=== PATIENT | female | born 1960 | race Caucasian/White ===

== ENCOUNTER 2016-10-07 18:41 | Inpatient (IN) | payer OTHER ==
[2016-10-07] MEDS ORDERED: SODIUM CHLORIDE 0.9% 1,000 ML IV ONE ×2 (20:20→20:40)
[2016-10-07] MEDS ORDERED: IV VANCOMYCIN PER PHARMACY 1 EACH MISC MISCELLANE PRN (20:27)
[2016-10-07] MEDS ORDERED: VANCOMYCIN 1,500 MG in SODIUM CHLORIDE 0.9% 250 ML IVPB STA (20:29)
[2016-10-07] MEDS ORDERED: HYDROmorphone 1 MG/ML 1 ML SYRINGE IVP STA (20:35)
--- NOTE | 2016-10-07 20:38 | ED ---
Skin/Abscess/FB HPI - General Chief complaint: Skin/Abscess/Foreign Body Stated complaint: leg infection Time Seen by Provider: 10/07/16 20:20 Source: patient, RN notes reviewed Mode of arrival: ambulatory Limitations: no limitations - History of Present Illness Initial comments: Patient is a 56-year-old female with a chief complaint of a laceration causing an infection over her right lower leg. She has a history of psoriasis and states that she stretched it becomes extremely itchy. She states that she may have scratched it in her sleep and then caught superficial infection. He states that she's had an increased fever, chills, diarrhea and rigors for one day. Patient reports that she saw her primary care provider and was told to come the emergency department. She states that the redness started this morning and is now radiating up her leg, behind her knee and her upper thigh. She states that she has never had a severe skin infection such as this and denies any history of MRSA. She reports that she's had a fever 103 prior to arriving to the emergency department. Patient denies any significant comorbidities. She denies any history of blood clots. She states that one week ago she did have some upper right leg pain when she was concerned was possible clot. Patient reports that she tested negative for the flu at the primary care office earlier today. - Related Data Home Medications Medication Instructions Recorded Confirmed Aspirin EC [Ecotrin Low Dose] 81 mg PO DAILY 10/07/16 10/07/16 Cholecalciferol [Vitamin D3] 1,000 unit PO DAILY 10/07/16 10/07/16 Cyanocobalamin (Vitamin B-12) 1,000 mcg PO HS 10/07/16 10/07/16 [Vitamin B-12] Horse [place] 1 tab PO DAILY 10/07/16 10/07/16 [place]-3 Fatty Acids/Fish Oil [Fish 1 cap PO DAILY 10/07/16 10/07/16 Oil 1,000 mg Softgel] [place] Oil 1 tab PO HS 10/07/16 10/07/16 Allergies Allergy/AdvReac Type Severity Reaction Status Date / Time Sulfa (Sulfonamide Allergy Rash/Hives Verified 10/07/16 20:43 Antibiotics) Review of Systems ROS Statement: Those systems with pertinent positive or pertinent negative responses have been documented in the HPI. ROS Other: All systems not noted in ROS Statement are negative. Past Medical History Additional Past Medical History / Comment(s): varicose veins History of Any Multi-Drug Resistant Organisms: None Reported Past Surgical History: Tonsillectomy Additional Past Surgical History / Comment(s): ovarian cyst and breast cyst removed Past Psychological History: No Psychological Hx Reported Smoking Status: Never smoker Past Alcohol Use History: None Reported Past Drug Use History: None Reported General Exam - General Exam Comments Initial Comments: Pleasant 56-year-old female. Patient does appear to be in somewhat discomfort. Limitations: no limitations General appearance: alert, in no apparent distress Head exam: Present: atraumatic, normocephalic, normal inspection Eye exam: Present: normal appearance, PERRL, EOMI. Absent: scleral icterus, conjunctival injection, periorbital swelling ENT exam: Present: normal exam, mucous membranes moist Neck exam: Present: normal inspection. Absent: tenderness, meningismus, lymphadenopathy Respiratory exam: Present: normal lung sounds bilaterally. Absent: respiratory distress, wheezes, rales, rhonchi, stridor Cardiovascular Exam: Present: regular rate, normal rhythm, normal heart sounds. Absent: systolic murmur, diastolic murmur, rubs, gallop, clicks GI/Abdominal exam: Present: soft, normal bowel sounds. Absent: distended, tenderness, guarding, rebound, rigid Extremities exam: Present: normal inspection, full ROM, normal capillary refill. Absent: tenderness, pedal edema, joint swelling, calf tenderness Right Hip exam: Present: normal inspection, full ROM Upper Leg exam: Present: normal inspection, full ROM, erythema (Patient has area of erythema over the upper medial thigh.) Knee exam: Present: normal inspection, full ROM, swelling (Area of erythema the lateral posterior knee.) Lower Leg exam: Present: full ROM, tenderness, swelling, erythema (Patient has significant erythema and swelling over the lower right leg. That erythema circumferential. Area of abrasion over the soup. Her knee which could be consistent of the initials inoculation site of the infection.). Absent: normal inspection Ankle exam: Present: normal inspection, full ROM, swelling Foot/Toe exam: Present: normal inspection, full ROM Neurovascular tendon exam: Present: no vascular compromise Gait: observed and normal Back exam: Present: normal inspection Neurological exam: Present: alert, oriented X3, CN II-XII intact Psychiatric exam: Present: normal affect, normal mood Skin exam: Present: warm, dry, intact, normal color. Absent: rash Course Vital Signs 10/07/16 10/07/16 10/07/16 19:15 20:44 20:59 Temperature 103.4 F H 99.7 F H Pulse Rate 117 H 89 92 Respiratory 16 18 16 Rate Blood Pressure 141/67 95/51 98/53 O2 Sat by Pulse 98 99 98 Oximetry Medical Decision Making - Medical Decision Making Patient is a 56-year-old female with a chief complaint of a laceration causing an infection over her right lower leg. She has a history of psoriasis and states that she stretched it becomes extremely itchy. She states that she may have scratched it in her sleep and then caught superficial infection. He states that she's had an increased fever, chills, diarrhea and rigors for one day. Patient has a significant cellulitis over the right lower leg. Patient will be started on IV fluids and sepsis protocol was initiated. Patient will be started on IV vancomycin. currently pending lab work. Lab work was reviewed and is signs of dehydration. No evidence of elevated white count. Patient has been started on IV vancomycin. I did discuss this case with nurse practitioner Carla wilson. Patient will be admitted to Dr. Alegria. Patient will be given IV fluids, continued IV antibiotics as well as pain medication. Also continue to dose Motrin Tylenol for fever. Patient agrees with the treatment plan. Patient has reportedly concerned of possible blood clot. We will order an ultrasound of the lower extremities. Is highly unlikely a blood clot with the significant fever and evidence of a superficial infection. - Lab Data Result diagrams: 10/07/16 20:37 10/07/16 20:37 Lab Results 10/07/16 10/07/16 10/07/16 Range/Units 20:37 20:37 20:37 WBC 8.7 (3.8-10.6) k/uL RBC 4.17 (3.80-5.40) m/uL Hgb 12.2 (11.4-16.0) gm/dL Hct 37.8 (34.0-46.0) % MCV 90.7 (80.0-100.0) fL MCH 29.2 (25.0-35.0) pg MCHC 32.2 (31.0-37.0) g/dL RDW 12.6 (11.5-15.5) % Plt Count 139 L (150-450) k/uL Neutrophils % 94 % Lymphocytes % 2 % Monocytes % 2 % Eosinophils % 1 % Basophils % 0 % Neutrophils # 8.1 H (1.3-7.7) k/uL Lymphocytes # 0.2 L (1.0-4.8) k/uL Monocytes # 0.2 (0-1.0) k/uL Eosinophils # 0.1 (0-0.7) k/uL Basophils # 0.0 (0-0.2) k/uL PT (9.0-12.0) sec INR (<1.1) APTT (22.0-30.0) sec Sodium 133 L (137-145) mmol/L Potassium 4.1 (3.5-5.1) mmol/L Chloride 100 (98-107) mmol/L Carbon Dioxide 21 L (22-30) mmol/L Anion Gap 12 mmol/L BUN 12 (7-17) mg/dL Creatinine 0.80 (0.52-1.04) mg/dL Est GFR (MDRD) Af Amer >60 (>60 ml/min/1.73 sqM) Est GFR (MDRD) Non-Af >60 (>60 ml/min/1.73 sqM) Glucose 124 H (74-99) mg/dL Plasma Lactic Acid [place] 0.9 (0.7-2.0) mmol/L Calcium 8.7 (8.4-10.2) mg/dL Total Bilirubin 1.3 (0.2-1.3) mg/dL AST 69 H (14-36) U/L ALT 103 H (9-52) U/L Alkaline Phosphatase 135 H (38-126) U/L Total Protein 6.0 L (6.3-8.2) g/dL Albumin 3.3 L (3.5-5.0) g/dL 10/07/16 Range/Units 20:37 WBC (3.8-10.6) k/uL RBC (3.80-5.40) m/uL Hgb (11.4-16.0) gm/dL Hct (34.0-46.0) % MCV (80.0-100.0) fL MCH (25.0-35.0) pg MCHC (31.0-37.0) g/dL RDW (11.5-15.5) % Plt Count (150-450) k/uL Neutrophils % % Lymphocytes % % Monocytes % % Eosinophils % % Basophils % % Neutrophils # (1.3-7.7) k/uL Lymphocytes # (1.0-4.8) k/uL Monocytes # (0-1.0) k/uL Eosinophils # (0-0.7) k/uL Basophils # (0-0.2) k/uL PT 11.2 (9.0-12.0) sec INR 1.1 (<1.1) APTT 28.7 (22.0-30.0) sec Sodium (137-145) mmol/L Potassium (3.5-5.1) mmol/L Chloride (98-107) mmol/L Carbon Dioxide (22-30) mmol/L Anion Gap mmol/L BUN (7-17) mg/dL Creatinine (0.52-1.04) mg/dL Est GFR (MDRD) Af Amer (>60 ml/min/1.73 sqM) Est GFR (MDRD) Non-Af (>60 ml/min/1.73 sqM) Glucose (74-99) mg/dL Plasma Lactic Acid [place] (0.7-2.0) mmol/L Calcium (8.4-10.2) mg/dL Total Bilirubin (0.2-1.3) mg/dL AST (14-36) U/L ALT (9-52) U/L Alkaline Phosphatase (38-126) U/L Total Protein (6.3-8.2) g/dL Albumin (3.5-5.0) g/dL Disposition Clinical Impression: Cellulitis of right leg Disposition: ADMITTED IP TO THIS HOSP Condition: Good Referrals: Mark Newton DO [Primary Care Provider] - 1-2 days Time of Disposition: 22:08
[2016-10-07] MEDS: SODIUM CHLORIDE 0.9% 1,000 ML IV SCH (20:59)
[2016-10-07 21:07] LABS: ALT 103 U/L (9-52); AST 69 U/L (14-36); Alkaline Phosphatase 135 U/L (38-126); Anion Gap 12 mmol/L; Blood Urea Nitrogen 12 mg/dL (7-17); Calcium 8.7 mg/dL (8.4-10.2); Carbon Dioxide 21 mmol/L (22-30); Chloride 100 mmol/L (98-107); Glucose 124 mg/dL (74-99); Non-African American GFR(MDRD) >60 (>60 ml/min/1.73 sqM); Potassium 4.1 mmol/L (3.5-5.1); Sodium 133 mmol/L (137-145); Total Bilirubin 1.3 mg/dL (0.2-1.3)
[2016-10-07 21:08] LABS: INR 1.1 (<1.1); Partial Thromboplastin Time 28.7 sec (22.0-30.0); Prothrombin Time 11.2 sec (9.0-12.0)
[2016-10-07 21:20] LABS: Basophils % (A) 0 %; CHCM 33.2; Eosinophils # (A) 0.1 k/uL (0-0.7); Eosinophils % (A) 1 %; HCT 37.8 % (34.0-46.0); HDW 2.21; HGB 12.2 gm/dL (11.4-16.0); Luc # (Auto) 0.07; Luc % (Auto) 1; Lymphocytes # (A) 0.2 k/uL (1.0-4.8); Lymphocytes % (A) 2 %; MCH 29.2 pg (25.0-35.0); MCHC 32.2 g/dL (31.0-37.0); MCV 90.7 fL (80.0-100.0); Mean Platelet Volume 7.5; Monocytes # (A) 0.2 k/uL (0-1.0); Monocytes % (A) 2 %; Neutrophils # (A) 8.1 k/uL (1.3-7.7); Neutrophils % (A) 94 %; RBC 4.17 m/uL (3.80-5.40); RDW 12.6 % (11.5-15.5); WBC 8.7 k/uL (3.8-10.6); WBC (Perox) 9.17
[2016-10-07] MEDS ORDERED: IBUPROFEN 600 MG TAB PO STA (22:01)
[2016-10-07] MEDS ORDERED: HYDROmorphone 1 MG/ML 1 ML SYRINGE IV PRN (22:02)
[2016-10-07] MEDS ORDERED: KETOROLAC 30 MG/ML 1 ML VIAL IVP PRN (22:02)
[2016-10-07] MEDS ORDERED: NALOXONE 0.4 MG/ML 1 ML VIAL IV PRN (22:02)
[2016-10-07] MEDS ORDERED: ONDANSETRON 4 MG/2 ML VIAL IVP PRN (22:02)
--- NOTE | 2016-10-07 23:04 | US ---
EXAM: US Duplex Right Lower Extremity Veins. CLINICAL HISTORY: Pain. TECHNIQUE: Real-time ultrasound scan of the veins of the right lower extremity with color Doppler flow, spectral waveform analysis and compression. COMPARISON: No relevant prior studies available. FINDINGS: Deep veins: No evidence of DVT in the visualized upper right external iliac vein, common femoral vein, deep femoral vein, femoral vein, popliteal vein and proximal calf veins. Superficial veins: Unremarkable. No thrombus in the visualized greater and small saphenous veins. Soft tissues: No acute findings. No popliteal cyst. Lymph nodes: Enlarged right inguinal lymph node, measuring 3.9 x 2.1 x 2.6 cm. IMPRESSION: 1. No evidence of DVT in the right lower extremity. 2. Enlarged right inguinal lymph node, measuring 3.9 x 2.1 x 2.6 cm.
[2016-10-08 00:17] VITALS: BMI 27.8
[2016-10-08] MEDS: SODIUM CHLORIDE 0.9% 1,000 ML IV SCH ×5 (00:22→18:41)
[2016-10-08] MEDS: HEPARIN SODIUM,PORCINE 5,000 UNIT/ML 1 ML VIAL SQ SCH ×3 (00:24→15:25)
[2016-10-08] MEDS: IBUPROFEN 400 MG TAB PO PRN (02:55)
[2016-10-08 03:15] LABS: Appearance,Urine Cloudy (Clear); Bilirubin,Urine 1+ (Negative); Glucose,Urine (UA) Negative (Negative); Granular Casts,Urine 109 /lpf (0); Ketones,Urine Negative (Negative); Leukocyte Esterase,Urine Small (Negative); Mucus,Urine Rare /hpf; Nitrite,Urine Negative (Negative); Particle Count 34438; Protein,Urine 2+ (Negative); RBC,Urine 13 /hpf (0-5); Specific Gravity,Urine 1.024 (1.001-1.035); Squamous Epithelial Cell,Urine 2 /hpf (0-4); UA Billing (MACRO vs. MICRO) MICRO
[2016-10-08] MEDS: ACETAMINOPHEN TAB 325 MG TAB PO PRN ×2 (04:10→14:58)
[2016-10-08] MEDS: VANCOMYCIN 1,500 MG in SODIUM CHLORIDE 0.9% 250 ML IVPB SCH ×2 (08:03→21:25)
[2016-10-08] MEDS ORDERED: PANTOPRAZOLE 40 MG/10 ML VIAL IV SCH (09:00)
[2016-10-08 10:42] LABS: Basophils % (A) 0 %; CH 30.3; CHCM 32.7; Eosinophils # (A) 0.1 k/uL (0-0.7); Eosinophils % (A) 2 %; HCT 34.2 % (34.0-46.0); HGB 11.1 gm/dL (11.4-16.0); Immature Gran Flag Marked; Luc # (Auto) 0.11; Luc % (Auto) 1; Lymphocytes # (A) 0.1 k/uL (1.0-4.8); Lymphocytes % (A) 1 %; MCHC 32.3 g/dL (31.0-37.0); Mean Platelet Volume 9.8; Monocytes # (A) 0.2 k/uL (0-1.0); Monocytes % (A) 3 %; Neutrophils # (A) 7.6 k/uL (1.3-7.7); Neutrophils % (A) 93 %; RBC 3.68 m/uL (3.80-5.40); RDW 12.9 % (11.5-15.5); WBC 8.2 k/uL (3.8-10.6); WBC (Perox) 8.23
[2016-10-08 11:16] LABS: Manual Review Performed
--- NOTE | 2016-10-08 11:56 | XR ---
EXAMINATION TYPE: XR chest 1V portable DATE OF EXAM: 10/08/2016 11:25 AM CLINICAL HISTORY: Fever and sepsis. TECHNIQUE: Single AP portable frontal upright view of the chest is obtained. COMPARISON: None FINDINGS: There is patchy opacity in the lung bases, left greater than right. No large pleural effu jeronimo or pneumothorax is seen bilaterally. The cardiac silhouette size is within normal limits. The osseous structures are intact. IMPRESSION: Left greater than right bibasilar infiltrate and/or atelectasis.
[2016-10-08 13:25] LABS: Anion Gap 10 mmol/L; Calcium 7.7 mg/dL (8.4-10.2); Carbon Dioxide 19 mmol/L (22-30); Chloride 105 mmol/L (98-107); Glucose 104 mg/dL (74-99); Non-African American GFR(MDRD) 52 (>60 ml/min/1.73 sqM); Sodium 134 mmol/L (137-145)
[2016-10-08 13:28] LABS: Blood Urea Nitrogen 14 mg/dL (7-17); Potassium 4.2 mmol/L (3.5-5.1)
[2016-10-08] MEDS: ceFAZolin 2 GM in SODIUM CHLORIDE 0.9% 100 ML IVPB SCH (15:24)
[2016-10-08] MEDS ORDERED: TEMAZEPAM 15 MG CAP PO PRN (19:20)
[2016-10-08] MEDS ORDERED: ALPRAZolam 0.25 MG TAB PO PRN (19:20)
[2016-10-08] MEDS: HYDROcodone/APAP 5-325MG 1 EACH TAB PO PRN (20:25)
[2016-10-08] MEDS ORDERED: CYANOCOBALAMIN 500 MCG TAB PO SCH (21:00)
[2016-10-08] MEDS: LEVALBUTEROL NEB 1.25 MG/3 ML AMP INHALATION SCH (21:21)
--- NOTE | 2016-10-08 21:32 | HP ---
DATE OF ADMISSION: 10/07/2016 CHIEF COMPLAINTS: Right leg swelling and erythema. HISTORY OF PRESENT ILLNESS: This 56-year-old woman with a past medical history of varicose veins on the right side, history of ovarian cyst, being followed by Dr. Mark Newton in the outpatient setting, also had psoriasis. The patient has a psoriatic lesion on the right leg. Patient is using multiple [id number] ointments. The patient also might have scratched the right leg sometime, probably during sleep or something, according to her. Patient noted pain and swelling of the right leg, increasing in intensity. Due to lack of improvement, patient came was sent to [facility] and was admitted for further evaluation and treatment. The psoriatic lesion was extremely itchy to her, and the patient was also complaining of fever, rigor, chills and diarrhea, and the redness was also extending, as mentioned earlier. There is no history of any previous infections or MRSA. On evaluation, the patient has platelets of 139. Sodium is 133. LFTs are elevated. UA showed multiple abnormalities as well. The patient was admitted for further evaluation and treatment. She was started on broad-spectrum IV antibiotics. The venous Doppler done at the time of admission showed no evidence of DVT; large right inguinal adenopathy was noted. The chest x-ray showed bibasilar infiltrates or atelectasis. Patient is being closely monitored. Infectious disease evaluation in progress at this time. PAST MEDICAL HISTORY: 1. History of varicose veins. 2. History of psoriasis. 3. History of ovarian cyst. 4. Breast cyst removal. Medications prior to admission include: 1. [place] oil 1 tablet at bedtime. 2. [place]-3 one p.o. daily. 3. Horse chestnut 1 p.o. daily. 4. Vitamin B12 1000 mg daily. 5. Vitamin D3 1000 daily. 6. Ecotrin 81 mg daily. ALLERGIES: SULFA. FAMILY HISTORY: No history of heart disease or strokes in the family. SOCIAL HISTORY: No history of smoking. No history of alcohol intake. REVIEW OF SYSTEMS: ENT: No diminished hearing. No diminished vision. CARDIOVASCULAR SYSTEM: No angina, palpitations. RESPIRATORY SYSTEM: As mentioned earlier. GI: No nausea. : No dysuria. NERVOUS SYSTEM: No numbness or weakness. ALLERGY/IMMUNOLOGY: No asthma or hayfever. MUSCULOSKELETAL: As mentioned earlier. HEMATOLOGY/ONCOLOGY: No history of anemia. ENDOCRINE: No history of diabetes, hypothyroidism. CONSTITUTIONAL: As mentioned earlier. DERMATOLOGY: As mentioned earlier. RHEUMATOLOGY: Negative. PSYCHIATRY: As mentioned earlier. PHYSICAL EXAMINATION: Patient is alert and oriented x3. Pulse is 109, blood pressure 92/54, respiration 20. Temperature is 102.2, pulse ox 95% on room air. HEENT: Conjunctivae normal. Oral mucosa moist. NECK: No jugular venous distention. No carotid bruit. No lymph node enlargement. CARDIOVASCULAR SYSTEM: S1, S2 muffled. No S3. No S4. RESPIRATORY SYSTEM: Breath sounds diminished at the bases. A few scattered rhonchi. No crackles. ABDOMEN: Soft, nontender. No mass palpable. No hepatosplenomegaly. LEGS: Minimal right leg swelling and erythema, tenderness also present in the right lower leg, and some erythematous area in the right lower thigh also present in the medial aspect. Inguinal lymphadenopathy present. NERVOUS SYSTEM: Higher functions as mentioned earlier. Moves all 4 limbs. No focal motor or sensory deficit. LYMPHATICS: As mentioned earlier. SKIN: As mentioned earlier. JOINTS: No active deforming arthropathy. LABS: WBC 8.6. Hemoglobin is 12.2 and 11.1. Sodium 133. Glucose 124. AST 69, ALT is 103. ASSESSMENT: 1. Acute cellulitis of the right leg with lymphangitis as well as early sepsis. 2. Increased AST, ALT, possibly secondary to sepsis. Rule out hepatitis. 3. Hypoalbuminemia with mild to moderate protein-calorie malnutrition. 4. Hyponatremia. 5. History of psoriasis. 6. Rule out urinary tract infection. 7. Thrombocytopenia, mild. 8. Anemia, normocytic; anemia of chronic disease. 9. History of varicose veins on the right. 10. History of ovarian cyst. 11. FULL CODE. 12. Obesity with body mass index of 35.1. RECOMMENDATIONS AND DISCUSSION: In this 56-year-old woman who presented with multiple complex medical issues, we will monitor the patient closely, continue the current medications, continue with symptomatic treatment. I recommend broad-spectrum IV antibiotics. Follow the cultures. Infectious disease evaluation. Blood cultures. Guarded prognosis because of multiple complex medical issues. Further recommendations to follow. A copy of this dictation is being forwarded to Dr. Newton, who is the primary physician.
[2016-10-08] MEDS: CHOLECALCIFEROL 1,000 UNIT TAB PO SCH (22:06)
--- NOTE | 2016-10-08 22:40 | P.CONS ---
History of Present Illness - Reason for Consult Consult date: 10/08/16 - Chief Complaint Fever - History of Present Illness 56-year-old female presents to the emergency center with concerns to greater than a day of symptoms. She is a known history of vein stripping to her right lower extremity due to varicose veins. This occurred several years ago. Over time she's had difficulties with some chronic changes to her skin to the right lower extremity.. She more recently suffered a scratched the pretibial surface of the right leg. Incessantly she developed significant swelling and pain and erythema to the leg. She was using some [id number] psoriatic medications without much improvement. She then had the onset of the high-grade fever of 103.46 with chills without jose rigors. Feeling very poorly. Urine became dark and odorous. She also felt poorly overall. This evening she is receiving a dose of vancomycin as developed a diffuse red reaction. And it is held. She feels slightly better this evening as far as her fever. She's had fluid resuscitation and is definitely helping her feeling better overall. Leg is still uncomfortable. It is related that her duplexes negative and she does not have a deep venous thrombosis of the right leg. She does not have a significant amount of pulmonary symptoms and chest x-rays were minimally abnormal. Patient relates she's not been feeling well for the last few days. She's been laying around and sleeping quite a bit. That is active issues usually has been. 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 Review of Systems HEENT:Denies headache or acute visual change. Denies sinus or mouth discomforts. Denies neck stiffness or pain. Denies significant oral cavity pain. Denies difficulty on swallowing. Lungs: Does not feel very short of breath. She's had minimal cough without sputum production or hemoptysis Cardiovascular: Denies significant shortness of breath, chest pain, chest wall pain, orthopnea, dyspnea on exertion, syncope Gastrointestinal:Denies nausea, vomiting, diarrhea, constipation, hematemesis, melena, hematochezia. No no significant change of bowel habit noticed. Musculoskeletal: denies significant myalgias or arthralgias. No new joint swelling. Denies new back pain. Skin: As per the HPI Neuro: Denies headache or visual change. Denies any new onset weakness or difficulty with ambulation. Denies falls or seizures. Psychiatric:Denies anxiety or depression. Endocrine: Denies significant fatigue, denies significant weight loss or weight gain. Past Medical History Additional Past Medical History / Comment(s): varicose veins History of Any Multi-Drug Resistant Organisms: None Reported Past Surgical History: Tonsillectomy Additional Past Surgical History / Comment(s): ovarian cyst and breast cyst removed Past Psychological History: No Psychological Hx Reported Additional Psychological History / Comment(s): lives in the family home with her and adult daughter who is a nursing assoc. Other adult children live in the [place]. Lifelong nonsmoker and no severe alcohol use. 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 No international travel. No experience. No animal exposures Smoking Status: Never smoker Past Alcohol Use History: None Reported Past Drug Use History: None Reported Medications and Allergies Home Medications and Allergies Comment(s): Current Medications Acetaminophen (Tylenol Tab) 650 mg PO Q6HR PRN PRN Reason: Mild Pain or Fever > 100.5 Last Admin: 10/08/16 14:58 Dose: 650 mg Hydrocodone Bitart/Acetaminophen ([place] 5-325) 1 each PO Q6HR PRN PRN Reason: Pain Last Admin: 10/08/16 20:25 Dose: 1 each Alprazolam (Xanax) 0.25 mg PO TID PRN PRN Reason: Anxiety Aspirin (Aspirin) 81 mg PO DAILY [facility] Cholecalciferol (Vitamin D3) 1,000 unit PO DAILY@1200 [facility] Last Admin: 10/08/16 22:06 Dose: 1,000 unit Cyanocobalamin (Vitamin B-12) 1,000 mcg PO HS [facility] Last Admin: 10/08/16 22:30 Dose: Not Given Heparin Sodium (Porcine) (Heparin) 5,000 unit SQ Q8HR [facility] Last Admin: 10/08/16 15:25 Dose: 5,000 unit Hydromorphone HCl (Dilaudid) 1 mg IV Q3HR PRN PRN Reason: Severe Pain Sodium Chloride (Saline 0.9%) 1,000 mls @ 200 mls/hr IV .Q5H [facility] Last Admin: 10/08/16 18:41 Dose: 200 mls/hr Cefazolin Sodium 2 gm/ Sodium (Chloride) 100 mls @ 100 mls/hr IVPB Q8HR [facility] Last Admin: 10/08/16 15:24 Dose: 100 mls/hr Ibuprofen (Motrin) 400 mg PO Q6HR PRN PRN Reason: Mild Pain or Fever > 100.5 Last Admin: 10/08/16 02:55 Dose: 400 mg Ketorolac Tromethamine (Toradol) 30 mg IVP Q6HR PRN PRN Reason: Moderate Pain Stop: 10/12/16 22:03 Lactobacillus Acidoph/Bulgaricus (Lactinex) 1 each PO QID [facility] Levalbuterol HCl (Xopenex Nebulized) 1.25 mg INHALATION RT-TID [facility] Last Admin: 10/08/16 21:21 Dose: 1.25 mg Multivitamins (Theragran) 1 each PO DAILY@1200 [facility] Naloxone HCl (Narcan) 0.2 mg IV Q2M PRN PRN Reason: Opioid Reversal Ondansetron HCl (Zofran) 4 mg IVP Q8HR PRN PRN Reason: Nausea And Vomiting Pantoprazole Sodium (Protonix) 40 mg PO AC-[id number] [facility] Silver Sulfadiazine (Silvadene Cream) 1 applic TOPICAL DAILY [facility] Sodium Bicarbonate () 10 ml PO 5XD [facility] Temazepam (Restoril) 15 mg PO HS PRN PRN Reason: Insomnia Home Medications Medication Instructions Recorded Confirmed Type Aspirin EC [Ecotrin Low Dose] 81 mg PO DAILY 10/07/16 10/07/16 History Cholecalciferol [Vitamin D3] 1,000 unit PO DAILY 10/07/16 10/07/16 History Cyanocobalamin (Vitamin B-12) 1,000 mcg PO HS 10/07/16 10/07/16 History [Vitamin B-12] [place] 1 tab PO DAILY 10/07/16 10/07/16 History [place]-3 Fatty Acids/Fish Oil [Fish 1 cap PO DAILY 10/07/16 10/07/16 History Oil 1,000 mg Softgel] [place] Oil 1 tab PO HS 10/07/16 10/07/16 History Allergies Allergy/AdvReac Type Severity Reaction Status Date / Time Sulfa (Sulfonamide Allergy Rash/Hives Verified 10/08/16 00:19 Antibiotics) Physical Exam Vitals: Vital Signs Temp Pulse Pulse Resp BP BP Pulse Ox 10/08/16 22:08 98.4 F 104 H 16 114/52 97 10/08/16 21:33 100 10/08/16 21:21 102 H 10/08/16 18:54 16 10/08/16 16:36 99.5 F 10/08/16 15:00 102.2 F H 109 H 20 92/54 95 10/08/16 13:31 100.5 F H 10/08/16 12:03 100.2 F H 101 H 88/51 10/08/16 10:59 80/58 10/08/16 07:00 99.8 F H 100 20 79/43 94 L 10/08/16 00:53 16 10/07/16 23:15 98.6 F 85 16 95/55 98 10/07/16 23:00 99.9 F H 100 16 112/53 97 Intake and Output 10/08/16 10/08/16 10/08/16 06:59 14:59 22:59 Intake Total 120 520 Output Total 1 Balance 119 520 Intake: Oral 120 520 Output: Emesis 1 Other: Voiding Method Toilet Toilet Bedside Commode # Voids 2 1 Weight 89.811 kg Pleasant 56-year-old woman who is somewhat uncomfortable is just developed a bit of a rash. HEENT: Anicteric conjunctiva are pink and moist nasal mucosa grossly intact without significant lesions, there is no thrush. Oral cavity though is dry Neck: The neck is supple without significant lymphadenopathy or thyromegaly. Lungs: Good bilateral air entry without wheezing rare crackles at the bases , there is no significant bronchial sounds. There is no egophony or dullness. Heart: Regular rate and rhythm with an audible S1-S2, no S3 no S4. There is no significant murmur click or rub, PMI was nondisplaced. Abdomen: Positive bowel sounds soft and nontender without palpable masses or organomegaly. There was no guarding or rebound. Extremities: The upper extremities have excellent pulses they are symmetric, no significant petechiae or telangiectasia. No splinter hemorrhages were noted. Left lower extremity without abnormality is. Pulses are 2+ and symmetric. No lesions on the left leg. Right lecture when he has evidence of the dense erythema on the right pretibial area. There is again dense erythema on the medial aspect of the thigh and into the right groin which has improved a bit since admission. Has only minimal residual tenderness with lymphadenopathy to the right groin. No other abnormal lymph nodes are noted Neuro: Awake alert oriented to person place and time. There are no acute new gross focal sensory motor deficits. Results CBC & Chem 7: 10/08/16 09:25 10/08/16 09:25 Labs: Abnormal Lab Results - Last 24 Hours (Table) 10/08/16 10/08/16 10/08/16 Range/Units 02:56 09:25 09:25 RBC 3.68 L (3.80-5.40) m/uL Hgb 11.1 L (11.4-16.0) gm/dL Plt Count 106 L (150-450) k/uL Lymphocytes # 0.1 L (1.0-4.8) k/uL Sodium 134 L (137-145) mmol/L Carbon Dioxide 19 L (22-30) mmol/L Creatinine 1.09 H (0.52-1.04) mg/dL Glucose 104 H (74-99) mg/dL Calcium 7.7 L (8.4-10.2) mg/dL Urine Appearance Cloudy H (Clear) Urine Protein 2+ H (Negative) Urine Blood Moderate H (Negative) Urine Bilirubin 1+ H (Negative) Ur Leukocyte Esterase Small H (Negative) Urine RBC 13 H (0-5) /hpf Hyaline Casts 19 H (0-2) /lpf Urine Mucus Rare H (None) /hpf Microbiology - Last 24 Hours (Table) 10/08/16 02:56 Urine Culture - Preliminary Urine,Clean Catch Laboratory Results WBC 8.2 k/uL (3.8-10.6) 10/08/16 09:25 RBC 3.68 m/uL (3.80-5.40) L 10/08/16 09:25 Hgb 11.1 gm/dL (11.4-16.0) L 10/08/16 09:25 Hct 34.2 % (34.0-46.0) 10/08/16 09:25 MCV 93.0 fL (80.0-100.0) 10/08/16 09:25 MCH 30.0 pg (25.0-35.0) 10/08/16 09:25 MCHC 32.3 g/dL (31.0-37.0) 10/08/16 09:25 RDW 12.9 % (11.5-15.5) 10/08/16 09:25 Plt Count 106 k/uL (150-450) L 10/08/16 09:25 Neutrophils % 93 % 10/08/16 09:25 Lymphocytes % 1 % 10/08/16 09:25 Monocytes % 3 % 10/08/16 09:25 Eosinophils % 2 % 10/08/16 09:25 Basophils % 0 % 10/08/16 09:25 Neutrophils # 7.6 k/uL (1.3-7.7) 10/08/16 09:25 Lymphocytes # 0.1 k/uL (1.0-4.8) L 10/08/16 09:25 Monocytes # 0.2 k/uL (0-1.0) 10/08/16 09:25 Eosinophils # 0.1 k/uL (0-0.7) 10/08/16 09:25 Basophils # 0.0 k/uL (0-0.2) 10/08/16 09:25 Manual Slide Review Performed 10/08/16 09:25 PT 11.2 sec (9.0-12.0) 10/07/16 20:37 INR 1.1 (<1.1) 10/07/16 20:37 APTT 28.7 sec (22.0-30.0) 10/07/16 20:37 Sodium 134 mmol/L (137-145) L 10/08/16 09:25 Potassium 4.2 mmol/L (3.5-5.1) 10/08/16 09:25 Chloride 105 mmol/L (98-107) 10/08/16 09:25 Carbon Dioxide 19 mmol/L (22-30) L 10/08/16 09:25 Anion Gap 10 mmol/L 10/08/16 09:25 BUN 14 mg/dL (7-17) 10/08/16 09:25 Creatinine 1.09 mg/dL (0.52-1.04) H 10/08/16 09:25 Est GFR (MDRD) Af Amer >60 (>60 ml/min/1.73 sqM) 10/08/16 09:25 Est GFR (MDRD) Non-Af 52 (>60 ml/min/1.73 sqM) 10/08/16 09:25 Glucose 104 mg/dL (74-99) H 10/08/16 09:25 Plasma Lactic Acid [place] 1.3 mmol/L (0.7-2.0) 10/08/16 16:05 Calcium 7.7 mg/dL (8.4-10.2) L 10/08/16 09:25 Total Bilirubin 1.3 mg/dL (0.2-1.3) 10/07/16 20:37 AST 69 U/L (14-36) H 10/07/16 20:37 ALT 103 U/L (9-52) H 10/07/16 20:37 Alkaline Phosphatase 135 U/L (38-126) H 10/07/16 20:37 Total Protein 6.0 g/dL (6.3-8.2) L 10/07/16 20:37 Albumin 3.3 g/dL (3.5-5.0) L 10/07/16 20:37 Urine Color Dark Yellow 10/08/16 02:56 Urine Appearance Cloudy (Clear) H 10/08/16 02:56 Urine pH 6.0 (5.0-8.0) 10/08/16 02:56 Ur Specific [place] 1.024 (1.001-1.035) 10/08/16 02:56 Urine Protein 2+ (Negative) H 10/08/16 02:56 Urine Glucose (UA) Negative (Negative) 10/08/16 02:56 Urine Ketones Negative (Negative) 10/08/16 02:56 Urine Blood Moderate (Negative) H 10/08/16 02:56 Urine Nitrite Negative (Negative) 10/08/16 02:56 Urine Bilirubin 1+ (Negative) H 10/08/16 02:56 Urine Urobilinogen 6.0 mg/dL (<2.0) 10/08/16 02:56 Ur Leukocyte Esterase Small (Negative) H 10/08/16 02:56 Urine RBC 13 /hpf (0-5) H 10/08/16 02:56 Ur Squamous Epith Cells 2 /hpf (0-4) 10/08/16 02:56 Hyaline Casts 19 /lpf (0-2) H 10/08/16 02:56 Granular Casts 109 /lpf (0) 10/08/16 02:56 Urine Mucus Rare /hpf (None) H 10/08/16 02:56 Microbiology 10/08/16 02:56 Urine,Clean Catch Urine Culture - Preliminary Assessment and Plan (1) Sepsis affecting skin Narrative/Plan: 56-year-old female presents to hospital with the sudden onset of fever chills generalized malaise and not feeling well for a few days. Then she developed significant pain discomfort and erythema to her right leg. She currently sought care in the emergency center room and has now been admitted with evidence of cellulitis and lymphangitis of the right lower extremity. Her risk factors are prior history of vein stripping to the leg. As he has chronic skin condition the right lower extremity which is present in the bases chronic venous stasis and some chronic ulceration. The skin will be treated with Silvadene. This far as antibiotic therapy she developed a reaction to the vancomycin therapy was quite acute and sudden and was viewed at this time. Vancomycin is discontinued and Benadryl was initiated. Patient likely has a streptococcal infection given the current scenario. [facility] will been utilizing this will be the only therapy at this time. Patient does have some atelectasis from her recent inactivity and illness. In sinus parameters at the bedside. To be used 10 times per hour. Does not seem to have pneumonia at this time. Probiotic therapy with Lactinex is added Elevation the limb and wrap will help this process. She may do well to follow- up in the office for evaluation of her skin condition the going setting since I' m concerned this is a venous stasis condition. Status: Acute (2) Fever Status: Acute (3) Cellulitis with lymphangitis Status: Acute (4) Atelectasis of both lungs Status: Acute
[2016-10-09] MEDS: diphenhydrAMINE 50 MG/ML 1 ML VIAL IVP STA ×2 (00:11→01:14)
[2016-10-09] MEDS: LACTOBACILLUS ACIDOPH & BULGAR 1 EACH PACKET PO SCH ×5 (00:11→22:09)
[2016-10-09] MEDS: IBUPROFEN 400 MG TAB PO PRN (01:21)
[2016-10-09] MEDS: ceFAZolin 2 GM in SODIUM CHLORIDE 0.9% 100 ML IVPB SCH ×3 (02:11→16:36)
[2016-10-09] MEDS: SALT AND SODA MOUTHWASH 1,000 ML PO SCH ×5 (02:12→21:03)
[2016-10-09] MEDS: HEPARIN SODIUM,PORCINE 5,000 UNIT/ML 1 ML VIAL SQ SCH ×3 (02:12→16:36)
[2016-10-09] MEDS: SODIUM CHLORIDE 0.9% 1,000 ML IV SCH ×4 (06:45→18:13)
[2016-10-09] MEDS ORDERED: VANCOMYCIN TROUGH DUE 1 EACH MISC MISCELLANE ONE (08:00)
[2016-10-09] MEDS: ASPIRIN 81 MG CHEW PO SCH (08:10)
[2016-10-09] MEDS: PANTOPRAZOLE 40 MG TABLET PO SCH (08:10)
[2016-10-09 08:47] LABS: ALT 68 U/L (9-52); AST 48 U/L (14-36); Alkaline Phosphatase 155 U/L (38-126); Anion Gap 8 mmol/L; Blood Urea Nitrogen 18 mg/dL (7-17); Calcium 7.7 mg/dL (8.4-10.2); Carbon Dioxide 19 mmol/L (22-30); Chloride 111 mmol/L (98-107); Glucose 97 mg/dL (74-99); Non-African American GFR(MDRD) 43 (>60 ml/min/1.73 sqM); Potassium 3.8 mmol/L (3.5-5.1); Sodium 138 mmol/L (137-145); Total Bilirubin 1.7 mg/dL (0.2-1.3); Total Protein 4.6 g/dL (6.3-8.2)
[2016-10-09 08:59] LABS: Basophils % (A) 0 %; CH 29.5; CHCM 31.4; Eosinophils # (A) 0.2 k/uL (0-0.7); Eosinophils % (A) 3 %; HCT 33.5 % (34.0-46.0); HDW 2.32; HGB 10.7 gm/dL (11.4-16.0); Luc # (Auto) 0.09; Luc % (Auto) 1; Lymphocytes # (A) 0.2 k/uL (1.0-4.8); Lymphocytes % (A) 3 %; MCH 30.1 pg (25.0-35.0); MCHC 31.9 g/dL (31.0-37.0); MCV 94.3 fL (80.0-100.0); Mean Platelet Volume 7.8; Monocytes # (A) 0.2 k/uL (0-1.0); Monocytes % (A) 3 %; Neutrophils % (A) 90 %; RBC 3.56 m/uL (3.80-5.40); RDW 13.1 % (11.5-15.5); WBC 7.8 k/uL (3.8-10.6); WBC (Perox) 8.17
[2016-10-09] MEDS: LEVALBUTEROL NEB 1.25 MG/3 ML AMP INHALATION SCH ×3 (09:08→19:24)
[2016-10-09 09:19] LABS: Hepatitis B Surface Ag Index 0.09
[2016-10-09 09:25] LABS: Hepatitis B Core IgM Index 0.03
[2016-10-09 09:34] LABS: Hepatitis C Virus IgG Index 0.01
[2016-10-09 09:36] LABS: Hepatitis C Virus IgG Ab Negative (Negative)
[2016-10-09] MEDS: CYANOCOBALAMIN 500 MCG TAB PO SCH (12:20)
[2016-10-09] MEDS: ACETAMINOPHEN TAB 325 MG TAB PO PRN ×2 (12:20→18:15)
[2016-10-09] MEDS: CHOLECALCIFEROL 1,000 UNIT TAB PO SCH (12:20)
[2016-10-09] MEDS: MULTIVITAMINS, THERA 1 EACH TAB PO SCH (12:20)
--- NOTE | 2016-10-09 18:12 | P.PN ---
Subjective Principal diagnosis: Fever 56-year-old female presents to the emergency center with concerns to greater than a day of symptoms. She is a known history of vein stripping to her right lower extremity due to varicose veins. This occurred several years ago. Over time she's had difficulties with some chronic changes to her skin to the right lower extremity.. She more recently suffered a scratched the pretibial surface of the right leg. Incessantly she developed significant swelling and pain and erythema to the leg. She was using some [id number] psoriatic medications without much improvement. She then had the onset of the high-grade fever of 103.46 with chills without jose rigors. Feeling very poorly. Urine became dark and odorous. She also felt poorly overall. This evening she is receiving a dose of vancomycin as developed a diffuse red reaction. And it is held. She feels slightly better this evening as far as her fever. She's had fluid resuscitation and is definitely helping her feeling better overall. Leg is still uncomfortable. It is related that her duplexes negative and she does not have a deep venous thrombosis of the right leg. She does not have a significant amount of pulmonary symptoms and chest x-rays were minimally abnormal. Patient relates she's not been feeling well for the last few days. She's been laying around and sleeping quite a bit. That is active issues usually has been. 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 Feeling considerably better today. Fever is definitely improved. 97.8 currently. No further high-grade fevers except overnight. Leg is feeling better. Does have an area of some irritation and erythema still but overall improved. With decompression she is quite surprised with a much improved the lower part of the leg is. Objective - Vital Signs Vital signs: Vital Signs Temp 98.7 F 10/09/16 15:00 Pulse 102 H 10/09/16 15:00 Resp 18 10/09/16 15:00 BP 127/62 10/09/16 15:00 Pulse Ox 92 L 10/09/16 15:00 Intake & Output 10/08/16 10/09/16 10/09/16 18:59 06:59 18:59 Intake Total 1060 600 Balance 1060 600 Intake: Oral 1060 600 Other: Voiding Method Bedside Commode # Voids 2 2 3 # Bowel Movements 0 - Exam Pleasant 56-year-old woman who is somewhat uncomfortable is just developed a bit of a rash. HEENT: Anicteric conjunctiva are pink and moist nasal mucosa grossly intact without significant lesions, there is no thrush. Oral cavity though is dry Neck: The neck is supple without significant lymphadenopathy or thyromegaly. Lungs: Good bilateral air entry without wheezing rare crackles at the bases , there is no significant bronchial sounds. There is no egophony or dullness. Heart: Regular rate and rhythm with an audible S1-S2, no S3 no S4. There is no significant murmur click or rub, PMI was nondisplaced. Abdomen: Positive bowel sounds soft and nontender without palpable masses or organomegaly. There was no guarding or rebound. Extremities: The upper extremities have excellent pulses they are symmetric, no significant petechiae or telangiectasia. No splinter hemorrhages were noted. Left lower extremity without abnormality is. Pulses are 2+ and symmetric. No lesions on the left leg. Right leg is improvement of the dense erythema of the right pretibial area. There is again dense erythema on the medial aspect of the thigh and into the right groin which is persistent today. Has only minimal residual tenderness with lymphadenopathy to the right groin. No other abnormal lymph nodes are noted Neuro: Awake alert oriented to person place and time. There are no acute new gross focal sensory motor deficits. - Labs CBC & Chem 7: 10/09/16 07:58 10/09/16 07:58 Labs: Abnormal Lab Results - Last 24 Hours (Table) 10/09/16 10/09/16 Range/Units 07:58 07:58 RBC 3.56 L (3.80-5.40) m/uL Hgb 10.7 L (11.4-16.0) gm/dL Hct 33.5 L (34.0-46.0) % Plt Count 135 L (150-450) k/uL Lymphocytes # 0.2 L (1.0-4.8) k/uL Chloride 111 H (98-107) mmol/L Carbon Dioxide 19 L (22-30) mmol/L BUN 18 H (7-17) mg/dL Creatinine 1.28 H (0.52-1.04) mg/dL Calcium 7.7 L (8.4-10.2) mg/dL Total Bilirubin 1.7 H (0.2-1.3) mg/dL AST 48 H (14-36) U/L ALT 68 H (9-52) U/L Alkaline Phosphatase 155 H (38-126) U/L Total Protein 4.6 L (6.3-8.2) g/dL Albumin 2.2 L (3.5-5.0) g/dL Microbiology - Last 24 Hours (Table) 10/08/16 02:56 Urine Culture - Final Urine,Clean Catch Laboratory Results WBC 7.8 k/uL (3.8-10.6) 10/09/16 07:58 RBC 3.56 m/uL (3.80-5.40) L 10/09/16 07:58 Hgb 10.7 gm/dL (11.4-16.0) L 10/09/16 07:58 Hct 33.5 % (34.0-46.0) L 10/09/16 07:58 MCV 94.3 fL (80.0-100.0) 10/09/16 07:58 MCH 30.1 pg (25.0-35.0) 10/09/16 07:58 MCHC 31.9 g/dL (31.0-37.0) 10/09/16 07:58 RDW 13.1 % (11.5-15.5) 10/09/16 07:58 Plt Count 135 k/uL (150-450) L 10/09/16 07:58 Neutrophils % 90 % 10/09/16 07:58 Lymphocytes % 3 % 10/09/16 07:58 Monocytes % 3 % 10/09/16 07:58 Eosinophils % 3 % 10/09/16 07:58 Basophils % 0 % 10/09/16 07:58 Neutrophils # 7.0 k/uL (1.3-7.7) 10/09/16 07:58 Lymphocytes # 0.2 k/uL (1.0-4.8) L 10/09/16 07:58 Monocytes # 0.2 k/uL (0-1.0) 10/09/16 07:58 Eosinophils # 0.2 k/uL (0-0.7) 10/09/16 07:58 Basophils # 0.0 k/uL (0-0.2) 10/09/16 07:58 Manual Slide Review Performed 10/08/16 09:25 PT 11.2 sec (9.0-12.0) 10/07/16 20:37 INR 1.1 (<1.1) 10/07/16 20:37 APTT 28.7 sec (22.0-30.0) 10/07/16 20:37 Sodium 138 mmol/L (137-145) 10/09/16 07:58 Potassium 3.8 mmol/L (3.5-5.1) 10/09/16 07:58 Chloride 111 mmol/L (98-107) H 10/09/16 07:58 Carbon Dioxide 19 mmol/L (22-30) L 10/09/16 07:58 Anion Gap 8 mmol/L 10/09/16 07:58 BUN 18 mg/dL (7-17) H 10/09/16 07:58 Creatinine 1.28 mg/dL (0.52-1.04) H 10/09/16 07:58 Est GFR (MDRD) Af Amer 52 (>60 ml/min/1.73 sqM) 10/09/16 07:58 Est GFR (MDRD) Non-Af 43 (>60 ml/min/1.73 sqM) 10/09/16 07:58 Glucose 97 mg/dL (74-99) 10/09/16 07:58 Plasma Lactic Acid [place] 1.3 mmol/L (0.7-2.0) 10/08/16 16:05 Calcium 7.7 mg/dL (8.4-10.2) L 10/09/16 07:58 Total Bilirubin 1.7 mg/dL (0.2-1.3) H 10/09/16 07:58 AST 48 U/L (14-36) H 10/09/16 07:58 ALT 68 U/L (9-52) H 10/09/16 07:58 Alkaline Phosphatase 155 U/L (38-126) H 10/09/16 07:58 Total Protein 4.6 g/dL (6.3-8.2) L 10/09/16 07:58 Albumin 2.2 g/dL (3.5-5.0) L 10/09/16 07:58 Urine Color Dark Yellow 10/08/16 02:56 Urine Appearance Cloudy (Clear) H 10/08/16 02:56 Urine pH 6.0 (5.0-8.0) 10/08/16 02:56 Ur Specific [place] 1.024 (1.001-1.035) 10/08/16 02:56 Urine Protein 2+ (Negative) H 10/08/16 02:56 Urine Glucose (UA) Negative (Negative) 10/08/16 02:56 Urine Ketones Negative (Negative) 10/08/16 02:56 Urine Blood Moderate (Negative) H 10/08/16 02:56 Urine Nitrite Negative (Negative) 10/08/16 02:56 Urine Bilirubin 1+ (Negative) H 10/08/16 02:56 Urine Urobilinogen 6.0 mg/dL (<2.0) 10/08/16 02:56 Ur Leukocyte Esterase Small (Negative) H 10/08/16 02:56 Urine RBC 13 /hpf (0-5) H 10/08/16 02:56 Ur Squamous Epith Cells 2 /hpf (0-4) 10/08/16 02:56 Hyaline Casts 19 /lpf (0-2) H 10/08/16 02:56 Granular Casts 109 /lpf (0) 10/08/16 02:56 Urine Mucus Rare /hpf (None) H 10/08/16 02:56 Hepatitis A IgM Ab NEGATIVE 10/09/16 07:58 Hep Bs Antigen Negative 10/09/16 07:58 Hep B Core IgM Ab NEGATIVE 10/09/16 07:58 Hep C IgG Ab Negative (Negative) 10/09/16 07:58 Microbiology 10/08/16 02:56 Urine,Clean Catch Urine Culture - Final 10/07/16 20:37 Blood Blood Culture - Preliminary No Growth after 24 hours Assessment and Plan (1) Sepsis affecting skin Narrative/Plan: 56-year-old female presents to hospital with the sudden onset of fever chills generalized malaise and not feeling well for a few days. Then she developed significant pain discomfort and erythema to her right leg. She currently sought care in the emergency center room and has now been admitted with evidence of cellulitis and lymphangitis of the right lower extremity. Her risk factors are prior history of vein stripping to the leg. As he has chronic skin condition the right lower extremity which is present in the bases chronic venous stasis and some chronic ulceration. The skin will be treated with Silvadene. This far as antibiotic therapy she developed a reaction to the vancomycin therapy was quite acute and sudden and was viewed at this time. Vancomycin is discontinued and Benadryl was initiated. Patient likely has a streptococcal infection given the current scenario. [facility] will been utilizing this will be the only therapy at this time. Patient does have some atelectasis from her recent inactivity and illness. The incentive spirometer is at the bedside. To be used 10 times per hour. Does not seem to have pneumonia at this time. Probiotic therapy with Lactinex is added Elevation the limb and wrap will help this process. She will do well to follow-up in the office for evaluation of her skin condition the going setting since I'm concerned this is a venous stasis condition. Is noted she is markedly improved. Continue course. Expect 48 hours further intravenous antibiotic therapy for further improvement. Status: Acute (2) Fever Status: Acute (3) Cellulitis with lymphangitis Status: Acute (4) Atelectasis of both lungs Status: Acute
--- NOTE | 2016-10-09 19:29 | PN ---
DATE OF SERVICE: 10/09/2016 This 56-year-old woman who was admitted with significant cellulitis of the right leg has lymphangitis as well as sepsis. She was also started on broad-spectrum IV antibiotics. Dr. Banda is following the patient. Today the patient is complaining of some redness in the right thigh, which actually has increased compared to yesterday. Cultures are pending at this time. The patient has elevated LFTs also. Patient also has a history of varicose veins on the right side, but ultrasound was negative for DVT. Past medical history reviewed. REVIEW OF SYSTEMS: CARDIOVASCULAR: No angina, palpitations. RESPIRATORY SYSTEM: No cough, hemoptysis. GI: No nausea, vomiting. DERMATOLOGY: As mentioned earlier. CONSTITUTIONAL: As mentioned earlier. Current medications include: 1. Tylenol 650 q.6 p.r.n. 2. [place] 5 mg q.6. 3. Xanax 0.25 t.i.d. 4. Aspirin 81 mg p.o. daily. 5. Cefazolin 2 grams IV q.8. 6. Vitamin D3 1000 daily. 7. Vitamin B12 1000 mcg p.o. daily. 8. Heparin 5000 units subcutaneously q.8. 9. Dilaudid 1 mg q.3 p.r.n. 10. Motrin 400 mg q.6. 11. Toradol 30 mg q.6. 12. Lactinex. 13. Xopenex 1.25 t.i.d. 14. Narcan. 15. Zofran. 16. Protonix. 17. Silvadene. 18. Restoril. PHYSICAL EXAMINATION: Patient is alert and oriented x3. Pulse 102. Blood pressure is 126/66, respiration 18, temperature 98.7, pulse ox 92% on room air. HEENT: Conjunctivae normal. Oral mucosa moist. NECK: No jugular venous distention. No carotid bruit. No lymph node enlargement. CARDIOVASCULAR SYSTEM: S1, S2 muffled. No S3. No S4. RESPIRATORY: Breath sounds diminished at the bases. No rhonchi. No crackles. ABDOMEN: Soft, obese, nontender. No mass palpable. LEGS: Right leg swelling as well as erythema in the right upper thigh and right leg cellulitis in the lower part of the leg also. NERVOUS SYSTEM: Higher functions as mentioned earlier. Moves all 4 limbs. No focal motor or sensory deficit. LYMPHATICS: No lymph node palpable in neck, axillae or groin. SKIN: No ulcer, rash, bleeding. LABS: WBC 7.2, hemoglobin 10.7. Creatinine 1.28. Total bilirubin is 1.7. AST, ALT noted; rather stable; still elevated. Albumin is 2.2. Urine is cloudy. Hepatitis panel is negative. ASSESSMENT: 1. Acute cellulitis of the right leg with lymphangitis as well as early sepsis, present on admission. 2. Increased AST, ALT, acute hepatitis, possibly secondary to hepatitis. 3. Hypoalbuminemia with mild to moderate protein-calorie malnutrition. 4. Mild acute renal failure, possibly secondary to prerenal factors and prerenal azotemia. 5. Hyponatremia. 6. History of psoriasis. 7. Possible urinary tract infection. 8. Thrombocytopenia, mild. 9. Anemia, normocytic; anemia of chronic disease. 10. History of varicose veins on the right. 11. History of ovarian cyst. 12. Obesity with body mass index of 34.1. 13. FULL CODE. RECOMMENDATIONS AND DISCUSSION: In this 56-year-old woman who presented with multiple complex medical issues, we will monitor the patient closely, continue the IV antibiotics, follow the cultures. Closely follow with Infectious Disease. Guarded prognosis because of multiple complex medical issues. Further recommendations to follow. See orders for further details.
[2016-10-09] MEDS: HYDROcodone/APAP 5-325MG 1 EACH TAB PO PRN (19:47)
[2016-10-10] MEDS: ceFAZolin 2 GM in SODIUM CHLORIDE 0.9% 100 ML IVPB SCH ×4 (00:46→23:44)
[2016-10-10] MEDS: HEPARIN SODIUM,PORCINE 5,000 UNIT/ML 1 ML VIAL SQ SCH ×4 (00:48→23:44)
[2016-10-10] MEDS: SODIUM CHLORIDE 0.9% 1,000 ML IV SCH ×6 (00:48→23:44)
[2016-10-10] MEDS: SALT AND SODA MOUTHWASH 1,000 ML PO SCH ×6 (00:53→23:46)
[2016-10-10] MEDS: HYDROcodone/APAP 5-325MG 1 EACH TAB PO PRN (04:28)
[2016-10-10] MEDS: LEVALBUTEROL NEB 1.25 MG/3 ML AMP INHALATION SCH ×3 (08:30→19:00)
[2016-10-10] MEDS: CYANOCOBALAMIN 500 MCG TAB PO SCH ×2 (08:33→10:00)
[2016-10-10] MEDS: PANTOPRAZOLE 40 MG TABLET PO SCH (08:33)
[2016-10-10] MEDS: LACTOBACILLUS ACIDOPH & BULGAR 1 EACH PACKET PO SCH ×4 (08:33→21:59)
[2016-10-10] MEDS: ASPIRIN 81 MG CHEW PO SCH (08:33)
[2016-10-10 08:38] LABS: Basophils % (A) 0 %; CH 29.5; CHCM 31.9; Eosinophils # (A) 0.2 k/uL (0-0.7); Eosinophils % (A) 2 %; HCT 32.7 % (34.0-46.0); HDW 2.47; HGB 10.3 gm/dL (11.4-16.0); Luc # (Auto) 0.16; Luc % (Auto) 2; Lymphocytes # (A) 0.3 k/uL (1.0-4.8); Lymphocytes % (A) 3 %; MCH 29.4 pg (25.0-35.0); MCHC 31.5 g/dL (31.0-37.0); MCV 93.1 fL (80.0-100.0); Mean Platelet Volume 7.4; Monocytes # (A) 0.3 k/uL (0-1.0); Monocytes % (A) 3 %; Neutrophils # (A) 8.8 k/uL (1.3-7.7); Neutrophils % (A) 90 %; RBC 3.51 m/uL (3.80-5.40); RDW 13.5 % (11.5-15.5); WBC 9.8 k/uL (3.8-10.6)
[2016-10-10] MEDS ORDERED: CYANOCOBALAMIN 500 MCG TAB PO SCH (08:43)
[2016-10-10 08:57] LABS: Calcium 8.1 mg/dL (8.4-10.2); Potassium 3.6 mmol/L (3.5-5.1); Total Bilirubin 1.2 mg/dL (0.2-1.3); Total Protein 4.7 g/dL (6.3-8.2)
[2016-10-10] MEDS: MULTIVITAMINS, THERA 1 EACH TAB PO SCH (13:40)
[2016-10-10] MEDS: CHOLECALCIFEROL 1,000 UNIT TAB PO SCH (13:40)
[2016-10-10] MEDS: ACETAMINOPHEN TAB 325 MG TAB PO PRN ×2 (13:49→22:24)
[2016-10-11] MEDS: SODIUM CHLORIDE 0.9% 1,000 ML IV SCH ×4 (04:56→20:18)
[2016-10-11] MEDS: ACETAMINOPHEN TAB 325 MG TAB PO PRN ×3 (04:56→20:22)
[2016-10-11] MEDS: SALT AND SODA MOUTHWASH 1,000 ML PO SCH ×4 (06:06→20:19)
[2016-10-11] MEDS: LACTOBACILLUS ACIDOPH & BULGAR 1 EACH PACKET PO SCH ×4 (08:16→22:59)
[2016-10-11] MEDS: HEPARIN SODIUM,PORCINE 5,000 UNIT/ML 1 ML VIAL SQ SCH ×2 (08:16→18:29)
[2016-10-11] MEDS: PANTOPRAZOLE 40 MG TABLET PO SCH (08:17)
[2016-10-11] MEDS: ceFAZolin 2 GM in SODIUM CHLORIDE 0.9% 100 ML IVPB SCH ×2 (08:17→18:28)
[2016-10-11] MEDS: CYANOCOBALAMIN 500 MCG TAB PO SCH (08:17)
[2016-10-11] MEDS: ASPIRIN 81 MG CHEW PO SCH (08:18)
[2016-10-11] MEDS: ALBUTEROL NEBULIZED 2.5 MG/3 ML INHALATION SCH ×4 (08:40→20:49)
[2016-10-11 10:10] LABS: ALT 64 U/L (9-52); AST 92 U/L (14-36); Alkaline Phosphatase 281 U/L (38-126); Anion Gap 8 mmol/L; Blood Urea Nitrogen 12 mg/dL (7-17); Calcium 8.5 mg/dL (8.4-10.2); Carbon Dioxide 23 mmol/L (22-30); Chloride 113 mmol/L (98-107); Glucose 103 mg/dL (74-99); Non-African American GFR(MDRD) 51 (>60 ml/min/1.73 sqM); Potassium 3.2 mmol/L (3.5-5.1); Sodium 144 mmol/L (137-145); Total Protein 4.8 g/dL (6.3-8.2)
--- NOTE | 2016-10-11 10:10 | PN ---
DATE OF SERVICE: 10/10/2016 This 56-year-old woman who was admitted with significant cellulitis and possible sepsis has been closely monitored. The cultures are negative so far. Erythema on top of thigh is slightly better. No chest pain or palpitation. Creatinine is 1.13. LFTs are still elevated, but showing some minimal diminishing trend at this time. Hepatitis panel is negative. PAST MEDICAL HISTORY: Reviewed. REVIEW OF SYSTEMS: CARDIOVASCULAR: No angina. RESPIRATORY: As mentioned. GI: No nausea. : No dysuria. NERVOUS: SYSTEM: No numbness or weakness. Current medications are reviewed and include: 1. Tylenol 650 q.6 p.r.n. 2. [place] 5 mg q.6 p.r.n. 3. Xanax. 4. Aspirin. 5. Cefazolin 2 grams IV q.8. 6. Vitamin D3 1000 p.o. daily. 7. Vitamin B12 1000 mcg p.o. daily. 8. Heparin 5000 units subcu p.o. daily. 9. Dilaudid 1 mg q.3 p.r.n. 10. Toradol 30 mg q.6. 11. Lactinex. 12. Xopenex. 13. Multivitamins. 14. Protonix. 15. Silvadene. 16. Restoril. PHYSICAL EXAMINATION: Patient is alert and oriented x3. Pulse is 106, blood pressure 120/57, respirations 16, temperature 99.6. Pulse ox 93% on room air. HEENT: Conjunctivae normal. NECK: No jugular venous distention. CARDIOVASCULAR: S1 and S2, muffled. RESPIRATORY: Breath sounds diminished at the bases. A few scattered rhonchi and crackles. ABDOMEN: Soft, nontender. No mass palpable. LEGS: No edema, no swelling. NERVOUS SYSTEM: No focal deficits. LABS: WBC 9.3, hemoglobin 10.3, sodium 130, potassium 3.6, creatinine is 1.13, AST 39, ALT 44, albumin is 2.2. ASSESSMENT: 1. Acute cellulitis of the right leg with lymphangitis as well as early sepsis, present on admission. 2. Increased AST, ALT, acute hepatitis, possibly secondary to hepatitis. 3. Hypoalbuminemia, mild to moderate protein calorie malnutrition. 4. Mild acute renal failure, possibly secondary to prerenal factors and prerenal azotemia. 5. Hyponatremia. 6. History of psoriasis. 7. Possible urinary tract infection. 8. Thrombocytopenia, mild. 9. Anemia, normocytic, anemia of chronic disease. 10. History of varicose veins on the right. 11. History of ovarian cyst. 12. Obesity with body mass index of 34.1. 13. FULL CODE. RECOMMENDATIONS AND DISCUSSION: I recommend to continue the current medications, continue monitoring and symptomatic treatment. Otherwise, at this time follow the cultures. Continue with IV antibiotics. Closely follow Infectious Disease with guarded prognosis because of multiple complex medical issues. Further recommendations to follow.
[2016-10-11 10:32] LABS: Basophils % (A) 0 %; CH 29.4; CHCM 31.7; Eosinophils # (A) 0.4 k/uL (0-0.7); Eosinophils % (A) 4 %; HCT 31.6 % (34.0-46.0); HDW 2.55; Immature Gran Flag Slight; Luc # (Auto) 0.22; Luc % (Auto) 2; Lymphocytes # (A) 0.6 k/uL (1.0-4.8); Lymphocytes % (A) 6 %; MCH 29.4 pg (25.0-35.0); MCHC 31.6 g/dL (31.0-37.0); MCV 93.2 fL (80.0-100.0); Mean Platelet Volume 7.3; Monocytes # (A) 0.4 k/uL (0-1.0); Monocytes % (A) 5 %; Neutrophils # (A) 7.6 k/uL (1.3-7.7); Neutrophils % (A) 82 %; RBC 3.39 m/uL (3.80-5.40); RDW 13.4 % (11.5-15.5); WBC 9.2 k/uL (3.8-10.6)
[2016-10-11] MEDS: CHOLECALCIFEROL 1,000 UNIT TAB PO SCH (12:59)
[2016-10-11] MEDS: MULTIVITAMINS, THERA 1 EACH TAB PO SCH (12:59)
[2016-10-11] MEDS ORDERED: POTASSIUM CHLORIDE ER 20 MEQ TAB.ER PO STA (16:33)
[2016-10-12] MEDS: HEPARIN SODIUM,PORCINE 5,000 UNIT/ML 1 ML VIAL SQ SCH ×4 (00:05→23:21)
[2016-10-12] MEDS: ceFAZolin 2 GM in SODIUM CHLORIDE 0.9% 100 ML IVPB SCH ×4 (00:06→23:21)
[2016-10-12] MEDS: SALT AND SODA MOUTHWASH 1,000 ML PO SCH ×6 (00:06→23:21)
[2016-10-12] MEDS: SODIUM CHLORIDE 0.9% 1,000 ML IV SCH ×3 (01:19→10:45)
[2016-10-12] MEDS: CYANOCOBALAMIN 500 MCG TAB PO SCH (07:48)
[2016-10-12] MEDS: ASPIRIN 81 MG CHEW PO SCH (07:48)
[2016-10-12] MEDS: PANTOPRAZOLE 40 MG TABLET PO SCH (07:48)
[2016-10-12] MEDS: LACTOBACILLUS ACIDOPH & BULGAR 1 EACH PACKET PO SCH ×4 (07:48→21:36)
[2016-10-12] MEDS: ALBUTEROL NEBULIZED 2.5 MG/3 ML INHALATION SCH ×4 (07:55→19:49)
--- NOTE | 2016-10-12 10:20 | PN ---
DATE OF SERVICE: 10/11/2016 This 56-year-old woman who was admitted with acute cellulitis of the right leg with lymphangitis as well as early sepsis on admission. The patient improving significantly. The patient is on IV antibiotics and local dressing. No chest pain or palpitations. No fever. On exam, alert and oriented x3. Pulse 83, blood pressure 130/75. Respiratory rate 16. Temperature 97.4. Pulse 97% on room air. HEENT: Conjunctivae normal. NECK: No jugular venous distention. CARDIOVASCULAR: S1, S2 muffled. RESPIRATORY: Breath sounds diminished at the bases. Scattered rhonchi. No crackles. ABDOMEN: soft, nontender. Legs: Right leg cellulitis. Nervous system: No focal deficit. LABS: Hemoglobin 10, the white count is 9.7, sodium 144, potassium 3.2. AST is 92 and ALT is 64 and albumin 2.3 all stable. Hepatitis panel is negative. ASSESSMENT: 1. Acute cellulitis of the right leg with lymphangitis as well as early sepsis present on admission. 2. Increased AST, ALT hepatitis possibly secondary to hepatitis. 3. Hypoalbuminemia, mild to moderate protein calorie malnutrition. 4. Mild acute renal failure, possible secondary to prerenal factors and prerenal azotemia. 5. Hyponatremia. 6. Hypokalemia. 7. History of psoriasis. 8. Possible urinary tract infection. 9. Thrombocytopenia, mild. 10. Anemia, normocytic, anemia of chronic disease. 11. History of varicosities on the right. 12. History of ovarian cyst. 13. Obesity with body mass index of 34.1. 14. FULL CODE. RECOMMENDATIONS AND DISCUSSION: Continuer current medications. Continue with monitoring. Symptomatic treatment. Otherwise, supplement potassium. Continue symptomatic treatment. Continue antibiotics. Guarded prognosis because of multiple complex medical issues. Further recommendations to follow. MTDD
[2016-10-12 10:35] LABS: CH 29.6; CHCM 31.8; HCT 31.8 % (34.0-46.0); HDW 2.58; HGB 10.1 gm/dL (11.4-16.0); Immature Gran Flag Marked; MCH 29.6 pg (25.0-35.0); MCHC 31.7 g/dL (31.0-37.0); MCV 93.6 fL (80.0-100.0); Mean Platelet Volume 7.8; RDW 13.7 % (11.5-15.5); WBC 9.4 k/uL (3.8-10.6); WBC (Perox) 10.59
[2016-10-12 10:40] LABS: ALT 79 U/L (9-52); AST 111 U/L (14-36); Alkaline Phosphatase 304 U/L (38-126); Anion Gap 10 mmol/L; Blood Urea Nitrogen 10 mg/dL (7-17); Calcium 8.2 mg/dL (8.4-10.2); Carbon Dioxide 21 mmol/L (22-30); Chloride 112 mmol/L (98-107); Glucose 91 mg/dL (74-99); Non-African American GFR(MDRD) >60 (>60 ml/min/1.73 sqM); Potassium 3.5 mmol/L (3.5-5.1); Sodium 143 mmol/L (137-145); Total Bilirubin 0.9 mg/dL (0.2-1.3)
[2016-10-12] MEDS: CHOLECALCIFEROL 1,000 UNIT TAB PO SCH (11:02)
[2016-10-12] MEDS: MULTIVITAMINS, THERA 1 EACH TAB PO SCH (11:02)
[2016-10-12] MEDS: ACETAMINOPHEN TAB 325 MG TAB PO PRN ×2 (11:04→20:55)
[2016-10-12] MEDS ORDERED: POTASSIUM CHLORIDE ER 20 MEQ TAB.ER PO STA (11:53)
[2016-10-12 11:59] LABS: Add Differential Manual Differential
[2016-10-12 12:02] LABS: Band Neutrophils % 3.5 %; Myelocytes % 0.5 %; Nucleated Red Blood Cells 0 /100 WBC (0-0); Total Cells Counted 200
[2016-10-12 12:03] LABS: Toxic Granulation Present
[2016-10-12] MEDS ORDERED: FUROSEMIDE 10 MG/ML 2 ML VIAL IV ONE (12:41)
--- NOTE | 2016-10-12 13:09 | XR ---
EXAMINATION TYPE: XR chest 1V portable DATE OF EXAM: 10/12/2016 1:03 PM COMPARISON: Pneumonia HISTORY: 10/08/2016 TECHNIQUE: Single frontal view of the chest is obtained. FINDINGS: Increasing basilar consolidation and pleural effusions. No pneumothorax. Heart size stable . IMPRESSION: 1. Increasing basilar consolidation and pleural effusion. Correlate for pneumonia.
--- NOTE | 2016-10-12 16:45 | P.PN ---
Subjective Principal diagnosis: Fever 56-year-old female presents to the emergency center with concerns to greater than a day of symptoms. She is a known history of vein stripping to her right lower extremity due to varicose veins. This occurred several years ago. Over time she's had difficulties with some chronic changes to her skin to the right lower extremity.. She more recently suffered a scratched the pretibial surface of the right leg. Incessantly she developed significant swelling and pain and erythema to the leg. She was using some [id number] psoriatic medications without much improvement. She then had the onset of the high-grade fever of 103.46 with chills without jose rigors. Feeling very poorly. Urine became dark and odorous. She also felt poorly overall. This evening she is receiving a dose of vancomycin as developed a diffuse red reaction. And it is held. She feels slightly better this evening as far as her fever. She's had fluid resuscitation and is definitely helping her feeling better overall. Leg is still uncomfortable. It is related that her duplexes negative and she does not have a deep venous thrombosis of the right leg. She does not have a significant amount of pulmonary symptoms and chest x-rays were minimally abnormal. Patient relates she's not been feeling well for the last few days. She's been laying around and sleeping quite a bit. That is active issues usually has been. 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 Feeling considerably better today. Fever is definitely improved. 97.6 currently. No further high-grade fevers . Leg is feeling better. Does have an area of some irritation and erythema still but overall improved. With compression she is quite surprised with a much improved the lower part of the leg .. Objective - Vital Signs Vital signs: Vital Signs Temp 97.6 F 10/12/16 15:00 Pulse 88 10/12/16 15:00 Resp 16 10/12/16 15:00 BP 137/57 10/12/16 15:00 Pulse Ox 98 10/12/16 15:00 Intake & Output 10/11/16 10/12/16 10/12/16 18:59 06:59 18:59 Intake Total 1700 1120 Balance 1700 1120 Intake: Intake, IV Titration 1700 Amount Sodium Chloride 0.9% 1, 1600 000 ml @ 200 mls/hr IV . Q5H [facility] Rx#:[id number] ceFAZolin 2 gm In Sodium 100 Chloride 0.9% 100 ml @ 100 mls/hr IVPB Q8HR [facility] Rx#:[id number] Oral 1120 Other: Voiding Method Toilet Bedside Commode # Voids 1 - Exam Pleasant 56-year-old woman who is somewhat uncomfortable is just developed a bit of a rash. HEENT: Anicteric conjunctiva are pink and moist nasal mucosa grossly intact without significant lesions, there is no thrush. Oral cavity though is dry Neck: The neck is supple without significant lymphadenopathy or thyromegaly. Lungs: Good bilateral air entry without wheezing , crackles at the bases ,there is no significant bronchial sounds. There is no egophony or dullness. Heart: Regular rate and rhythm with an audible S1-S2, no S3 no S4. There is no significant murmur click or rub, PMI was nondisplaced. Abdomen: Positive bowel sounds soft and nontender without palpable masses or organomegaly. There was no guarding or rebound. Extremities: The upper extremities have excellent pulses they are symmetric, no significant petechiae or telangiectasia. No splinter hemorrhages were noted. Left lower extremity without abnormality is. Pulses are 2+ and symmetric. No lesions on the left leg. Right leg is improvement of the dense erythema of the right pretibial area. There is again dense erythema on the medial aspect of the thigh and into the right groin which is persistent today. Has resolution of the tenderness and lymphadenopathy of the right groin. No other abnormal lymph nodes are noted Neuro: Awake alert oriented to person place and time. There are no acute new gross focal sensory motor deficits. - Labs CBC & Chem 7: 10/12/16 08:54 10/12/16 08:54 Labs: Abnormal Lab Results - Last 24 Hours (Table) 10/12/16 10/12/16 Range/Units 08:54 08:54 RBC 3.40 L (3.80-5.40) m/uL Hgb 10.1 L (11.4-16.0) gm/dL Hct 31.8 L (34.0-46.0) % Lymphocytes # (Manual) 0.8 L (1.0-4.8) k/uL Chloride 112 H (98-107) mmol/L Carbon Dioxide 21 L (22-30) mmol/L Calcium 8.2 L (8.4-10.2) mg/dL AST 111 H (14-36) U/L ALT 79 H (9-52) U/L Alkaline Phosphatase 304 H (38-126) U/L Total Protein 5.0 L (6.3-8.2) g/dL Albumin 2.4 L (3.5-5.0) g/dL Laboratory Results WBC 9.4 k/uL (3.8-10.6) 10/12/16 08:54 RBC 3.40 m/uL (3.80-5.40) L 10/12/16 08:54 Hgb 10.1 gm/dL (11.4-16.0) L 10/12/16 08:54 Hct 31.8 % (34.0-46.0) L 10/12/16 08:54 MCV 93.6 fL (80.0-100.0) 10/12/16 08:54 MCH 29.6 pg (25.0-35.0) 10/12/16 08:54 MCHC 31.7 g/dL (31.0-37.0) 10/12/16 08:54 RDW 13.7 % (11.5-15.5) 10/12/16 08:54 Plt Count 251 k/uL (150-450) 10/12/16 08:54 Neutrophils % 82 % 10/11/16 09:44 Neutrophils % (Manual) 76.5 % 10/12/16 08:54 Band Neutrophils % 3.5 % 10/12/16 08:54 Lymphocytes % 6 % 10/11/16 09:44 Lymphocytes % (Manual) 8.5 % 10/12/16 08:54 Monocytes % 5 % 10/11/16 09:44 Monocytes % (Manual) 2.5 % 10/12/16 08:54 Eosinophils % 4 % 10/11/16 09:44 Eosinophils % (Manual) 4.5 % 10/12/16 08:54 Basophils % 0 % 10/11/16 09:44 Metamyelocytes % 4.0 % 10/12/16 08:54 Myelocytes % 0.5 % 10/12/16 08:54 Neutrophils # 7.6 k/uL (1.3-7.7) 10/11/16 09:44 Neutrophils # (Manual) 7.5 k/uL (1.3-7.7) 10/12/16 08:54 Lymphocytes # 0.6 k/uL (1.0-4.8) L 10/11/16 09:44 Lymphocytes # (Manual) 0.8 k/uL (1.0-4.8) L 10/12/16 08:54 Monocytes # 0.4 k/uL (0-1.0) 10/11/16 09:44 Monocytes # (Manual) 0.2 k/uL (0-1.0) 10/12/16 08:54 Eosinophils # 0.4 k/uL (0-0.7) 10/11/16 09:44 Eosinophils # (Manual) 0.4 k/uL (0-0.7) 10/12/16 08:54 Basophils # 0.0 k/uL (0-0.2) 10/11/16 09:44 Nucleated RBCs 0 /100 WBC (0-0) 10/12/16 08:54 Manual Slide Review Performed 10/08/16 09:25 Toxic Granulation Present 10/12/16 08:54 Poikilocytosis (manual Present 10/12/16 08:54 Anisocytosis (manual) Present 10/12/16 08:54 PT 11.2 sec (9.0-12.0) 10/07/16 20:37 INR 1.1 (<1.1) 10/07/16 20:37 APTT 28.7 sec (22.0-30.0) 10/07/16 20:37 Sodium 143 mmol/L (137-145) 10/12/16 08:54 Potassium 3.5 mmol/L (3.5-5.1) 10/12/16 08:54 Chloride 112 mmol/L (98-107) H 10/12/16 08:54 Carbon Dioxide 21 mmol/L (22-30) L 10/12/16 08:54 Anion Gap 10 mmol/L 10/12/16 08:54 BUN 10 mg/dL (7-17) 10/12/16 08:54 Creatinine 0.90 mg/dL (0.52-1.04) 10/12/16 08:54 Est GFR (MDRD) Af Amer >60 (>60 ml/min/1.73 sqM) 10/12/16 08:54 Est GFR (MDRD) Non-Af >60 (>60 ml/min/1.73 sqM) 10/12/16 08:54 Glucose 91 mg/dL (74-99) 10/12/16 08:54 Plasma Lactic Acid [place] 1.3 mmol/L (0.7-2.0) 10/08/16 16:05 Calcium 8.2 mg/dL (8.4-10.2) L 10/12/16 08:54 Total Bilirubin 0.9 mg/dL (0.2-1.3) 10/12/16 08:54 AST 111 U/L (14-36) H 10/12/16 08:54 ALT 79 U/L (9-52) H 10/12/16 08:54 Alkaline Phosphatase 304 U/L (38-126) H 10/12/16 08:54 Total Protein 5.0 g/dL (6.3-8.2) L 10/12/16 08:54 Albumin 2.4 g/dL (3.5-5.0) L 10/12/16 08:54 Urine Color Dark Yellow 10/08/16 02:56 Urine Appearance Cloudy (Clear) H 10/08/16 02:56 Urine pH 6.0 (5.0-8.0) 10/08/16 02:56 Ur Specific [place] 1.024 (1.001-1.035) 10/08/16 02:56 Urine Protein 2+ (Negative) H 10/08/16 02:56 Urine Glucose (UA) Negative (Negative) 10/08/16 02:56 Urine Ketones Negative (Negative) 10/08/16 02:56 Urine Blood Moderate (Negative) H 10/08/16 02:56 Urine Nitrite Negative (Negative) 10/08/16 02:56 Urine Bilirubin 1+ (Negative) H 10/08/16 02:56 Urine Urobilinogen 6.0 mg/dL (<2.0) 10/08/16 02:56 Ur Leukocyte Esterase Small (Negative) H 10/08/16 02:56 Urine RBC 13 /hpf (0-5) H 10/08/16 02:56 Ur Squamous Epith Cells 2 /hpf (0-4) 10/08/16 02:56 Hyaline Casts 19 /lpf (0-2) H 10/08/16 02:56 Granular Casts 109 /lpf (0) 10/08/16 02:56 Urine Mucus Rare /hpf (None) H 10/08/16 02:56 Hepatitis A IgM Ab NEGATIVE 10/09/16 07:58 Hep Bs Antigen Negative 10/09/16 07:58 Hep B Core IgM Ab NEGATIVE 10/09/16 07:58 Hep C IgG Ab Negative (Negative) 10/09/16 07:58 Microbiology 10/07/16 20:37 Blood Blood Culture - Preliminary No Growth after 96 hours 10/08/16 02:56 Urine,Clean Catch Urine Culture - Final - Imaging and Cardiology Chest x-ray: report reviewed (Increasing effusions now treated with Lasix therapy) Assessment and Plan (1) Sepsis affecting skin Narrative/Plan: 56-year-old female presents to hospital with the sudden onset of fever chills generalized malaise and not feeling well for a few days. Then she developed significant pain discomfort and erythema to her right leg. She currently sought care in the emergency center room and has now been admitted with evidence of cellulitis and lymphangitis of the right lower extremity. Her risk factors are prior history of vein stripping to the leg. As he has chronic skin condition the right lower extremity which is present in the bases chronic venous stasis and some chronic ulceration. The skin will be treated with Silvadene. This far as antibiotic therapy she developed a reaction to the vancomycin therapy was quite acute and sudden and was viewed at this time. Vancomycin is discontinued and Benadryl was initiated. Patient likely has a streptococcal infection given the current scenario. [facility] will been utilizing this will be the only therapy at this time. Patient does have some atelectasis from her recent inactivity and illness. The incentive spirometer is at the bedside. To be used 10 times per hour. Chest x- ray showing evidence of some atelectasis and fluid clinically doubt pneumonia. Probiotic therapy with Lactinex is added Elevation the limb and wrap will help this process. She will do well to follow-up in the office for evaluation of her skin condition the going setting since I'm concerned this is a venous stasis condition. Is noted she is markedly improved. Continue course. Expect 48 hours further intravenous antibiotic therapy for further improvement. Status: Acute (2) Fever Status: Acute (3) Cellulitis with lymphangitis Status: Acute (4) Atelectasis of both lungs Status: Acute
--- NOTE | 2016-10-12 17:52 | US ---
EXAMINATION TYPE: US venous doppler duplex LE LT DATE OF EXAM: 10/12/2016 5:41 PM COMPARISON: NONE CLINICAL HISTORY: left leg edema. Patient states she is taking blood thinners SIDE PERFORMED: Left VESSELS IMAGED: External Iliac Vein (EIV) Common Femoral Vein Deep Femoral Vein Greater Saphenous Vein * Femoral Vein Popliteal Vein Small Saphenous Vein * Proximal Calf Veins (* superficial vessels) TECHNOLOGIST IMPRESSION: Left Leg: Negative for DVT IMPRESSION: Normal exam. No evidence of deep venous thrombosis in the left leg.
[2016-10-12] MEDS: FUROSEMIDE 10 MG/ML 10 ML VIAL IV SCH (20:55)
--- NOTE | 2016-10-12 22:17 | P.PN ---
Subjective Date of service 10/12/2016 Progress note being dictated for Dr. Alegria. Interval history: Is a 56-year-old female admitted with sepsis, acute cellulitis of the right leg, lymphangitis and multiple other medical issues. Maintained on IV antibiotics with significant clinical improvement. Complains of generalized diffuse edema, localized left leg edema, without pain. Chest x- ray performed reporting increasing bibasilar consolidation, pleural effusion .Doppler ultrasound of left leg reporting negative for DVT . Afebrile, normal WBC. Mildly elevated LFTs.Renal function improving. Potassium 3.5. Review of systems: HEENT: Denies headache or focal deficits. Denies any dizziness or lightheadedness. Respiratory: Denies any increased shortness of breath. Cardiac: Denies any chest pain, palpitations. GI: Denies any nausea, vomiting, or diarrhea. Denies any abdominal tenderness. : Denies any dysuria. Psychiatry: Denies any anxiety or depression. Active Medications Generic Name Dose Route Start Last Admin Trade Name Freq PRN Reason Stop Dose Admin Acetaminophen 650 mg 10/07/16 22:02 10/12/16 11:04 Tylenol Tab PO 650 mg Q6HR PRN Administration Mild Pain or Fever > 100.5 Hydrocodone Bitart/Acetaminophen 1 each 10/08/16 19:20 10/10/16 04:28 Watson 5-325 PO 1 each Q6HR PRN Administration Pain Albuterol Sulfate 2.5 mg 10/11/16 08:00 10/12/16 16:34 Ventolin Nebulized INHALATION 2.5 mg RT-QID BIJAL Administration Alprazolam 0.25 mg 10/08/16 19:20 Xanax PO TID PRN Anxiety Aspirin 81 mg 10/09/16 09:00 10/12/16 07:48 Aspirin PO 81 mg DAILY BIJAL Administration Cholecalciferol 1,000 unit 10/08/16 19:30 10/12/16 11:02 Vitamin D3 PO 1,000 unit DAILY@1200 BIJAL Administration Cyanocobalamin 1,000 mcg 10/10/16 09:00 10/12/16 07:48 Vitamin B-12 PO 1,000 mcg DAILY BIJAL Administration Heparin Sodium (Porcine) 5,000 unit 10/08/16 00:00 10/12/16 16:19 Heparin SQ 5,000 unit Q8HR BIJAL Administration Hydromorphone HCl 1 mg 10/07/16 22:02 Dilaudid IV Q3HR PRN Severe Pain Cefazolin Sodium 2 gm/ Sodium 100 mls @ 100 mls/hr 10/08/16 16:00 10/12/16 16 :19 Chloride IVPB 100 mls/hr Q8HR BIJAL Administration Ibuprofen 400 mg 10/07/16 22:02 10/09/16 01:21 Motrin PO 400 mg Q6HR PRN Administration Mild Pain or Fever > 100.5 Ketorolac Tromethamine 30 mg 10/07/16 22:02 Toradol IVP 10/12/16 22:03 Q6HR PRN Moderate Pain Lactobacillus Acidoph/Bulgaricus 1 each 10/08/16 22:30 10/12/16 17:53 Lactinex PO 1 each QID BIJAL Administration Multivitamins 1 each 10/09/16 12:00 10/12/16 11:02 Theragran PO 1 each DAILY@1200 BIJAL Administration Naloxone HCl 0.2 mg 10/07/16 22:02 Narcan IV Q2M PRN Opioid Reversal Ondansetron HCl 4 mg 10/07/16 22:02 Zofran IVP Q8HR PRN Nausea And Vomiting Pantoprazole Sodium 40 mg 10/09/16 07:30 10/12/16 07:48 Protonix PO 40 mg [id number] BIJAL Administration Silver Sulfadiazine 1 applic 10/08/16 22:30 10/12/16 07:48 Silvadene Cream TOPICAL 1 applic DAILY BIJAL Administration Sodium Bicarbonate 10 ml 10/09/16 00:00 10/12/16 16:19 PO 10 ml 5XD BIJAL Administration Temazepam 15 mg 10/08/16 19:20 Restoril PO HS PRN Insomnia Objective - Vital Signs Vital signs: Vital Signs Temp 97.6 F 10/12/16 15:00 Pulse 88 10/12/16 16:48 Resp 16 10/12/16 15:00 BP 137/57 10/12/16 15:00 Pulse Ox 98 10/12/16 15:00 Intake & Output 10/11/16 10/12/16 10/12/16 18:59 06:59 18:59 Intake Total 1700 1120 Balance 1700 1120 Intake: Intake, IV Titration 1700 Amount Sodium Chloride 0.9% 1, 1600 000 ml @ 200 mls/hr IV . Q5H BIJAL Rx#:[id number] ceFAZolin 2 gm In Sodium 100 Chloride 0.9% 100 ml @ 100 mls/hr IVPB Q8HR [facility] Rx#:[id number] Oral 1120 Other: Voiding Method Toilet Bedside Commode # Voids 1 3 # Bowel Movements 1 - Exam PHYSICAL EXAM: VITAL SIGNS: [As above] GENERAL: [Sitting up in chair, no acute distress] HEENT: [Pupils equal conjunctiva normal.] NECK: [Supple, no JVD] RESPIRATORY EFFORT:[Normal] LUNGS: [Lungs clear, bilateral bases diminished, no crackles, rhonchi or wheezes] CARDIOVASCULAR[regular S1 and S2, no murmurs rubs or gallops] GI: [Abdomen soft, nontender, positive bowel sounds.] PSYCH: [Alert and oriented -3, mood and affect normal.] SKIN: mild left leg edema, right leg erythema,cellulitis improving,] NEURO: [No focal deficits, moves all 4 extremities, strength and sensation intact] Microbiology 10/07/16 20:37 Blood Blood Culture - Preliminary No Growth after 96 hours 10/08/16 02:56 Urine,Clean Catch Urine Culture - Final - Labs CBC & Chem 7: 10/12/16 08:54 10/12/16 08:54 Labs: Abnormal Lab Results - Last 24 Hours (Table) 10/12/16 10/12/16 Range/Units 08:54 08:54 RBC 3.40 L (3.80-5.40) m/uL Hgb 10.1 L (11.4-16.0) gm/dL Hct 31.8 L (34.0-46.0) % Lymphocytes # (Manual) 0.8 L (1.0-4.8) k/uL Chloride 112 H (98-107) mmol/L Carbon Dioxide 21 L (22-30) mmol/L Calcium 8.2 L (8.4-10.2) mg/dL AST 111 H (14-36) U/L ALT 79 H (9-52) U/L Alkaline Phosphatase 304 H (38-126) U/L Total Protein 5.0 L (6.3-8.2) g/dL Albumin 2.4 L (3.5-5.0) g/dL Assessment and Plan Plan: 1. [Acute cellulitis of right leg with lymphangitis, early sepsis, 2. [Elevated LFTs, hepatitis panel negative, possibly medication related. 3. [Mild acute renal failure secondary to prerenal factors and prerenal azotemia , and eventually improved with IV fluid]. 4. [Hypoalbuminemia]. 5. [Anemia, normocytic of chronic disease]. 6. [Obesity, BMI 35.1]. 7. [Bibasilar atelectasis, bilateral pleural effusions, mild pulmonary edema secondary to IV fluid hydration]. Doubt pneumonia. 8. Hypokalemia 9. varicose veins, history of veins stripping. 10. Thrombocytopenia, resolved Plan: Continue on current medication regime, antibiotics, monitoring and symptomatic treatment. IV fluids discontinued, Doppler of left leg ruled out DVT as mentioned above. Single dose of Lasix ordered. Potassium supplemented. Close monitoring of electrolytes with repeat labs ordered for a.m. Discharge planning in progress for tomorrow. The impression and plan of care has been dictated as directed. : I performed a H&P examination of this patient and discussed the same with the dictator. I agree with the dictator's note. Any additional findings/opinions/ etc. will be noted.
[2016-10-13] MEDS: SALT AND SODA MOUTHWASH 1,000 ML PO SCH ×5 (05:56→23:39)
[2016-10-13] MEDS: ALBUTEROL NEBULIZED 2.5 MG/3 ML INHALATION SCH ×4 (08:20→19:12)
[2016-10-13] MEDS: CYANOCOBALAMIN 500 MCG TAB PO SCH (08:32)
[2016-10-13] MEDS: HEPARIN SODIUM,PORCINE 5,000 UNIT/ML 1 ML VIAL SQ SCH ×3 (08:32→23:45)
[2016-10-13] MEDS: PANTOPRAZOLE 40 MG TABLET PO SCH (08:32)
[2016-10-13] MEDS: ASPIRIN 81 MG CHEW PO SCH (08:32)
[2016-10-13] MEDS: ceFAZolin 2 GM in SODIUM CHLORIDE 0.9% 100 ML IVPB SCH ×3 (08:32→23:37)
[2016-10-13] MEDS: LACTOBACILLUS ACIDOPH & BULGAR 1 EACH PACKET PO SCH ×4 (08:32→21:15)
[2016-10-13] MEDS: FUROSEMIDE 10 MG/ML 10 ML VIAL IV SCH ×2 (08:32→21:14)
[2016-10-13 09:01] LABS: CH 29.3; HCT 33.8 % (34.0-46.0); HDW 2.44; HGB 10.6 gm/dL (11.4-16.0); Immature Gran Flag Marked; MCH 28.8 pg (25.0-35.0); MCHC 31.3 g/dL (31.0-37.0); MCV 92.2 fL (80.0-100.0); Mean Platelet Volume 7.2; RBC 3.66 m/uL (3.80-5.40); RDW 13.5 % (11.5-15.5); WBC 11.2 k/uL (3.8-10.6); WBC (Perox) 11.57
[2016-10-13 09:16] LABS: ALT 75 U/L (9-52); AST 109 U/L (14-36); Alkaline Phosphatase 315 U/L (38-126); Anion Gap 15 mmol/L; Blood Urea Nitrogen 13 mg/dL (7-17); Calcium 8.7 mg/dL (8.4-10.2); Carbon Dioxide 25 mmol/L (22-30); Chloride 106 mmol/L (98-107); Glucose 91 mg/dL (74-99); Magnesium 1.5 mg/dL (1.6-2.3); Potassium 3.6 mmol/L (3.5-5.1); Sodium 146 mmol/L (137-145)
[2016-10-13 09:17] LABS: Total Protein 5.7 g/dL (6.3-8.2)
[2016-10-13 09:19] LABS: Non-African American GFR(MDRD) 58 (>60 ml/min/1.73 sqM)
--- NOTE | 2016-10-13 09:30 | US ---
EXAMINATION TYPE: US abdomen complete DATE OF EXAM: 10/13/2016 8:04 AM COMPARISON: NONE CLINICAL HISTORY: elevated liver enzymes. Elevated LFT's EXAM MEASUREMENTS: Liver Length: 16.8 cm Gallbladder Wall: 0.3 cm CBD: 0.4 cm Spleen: 9.4 cm Right Kidney: 12.2 x 4.7 x 5.7 cm Left Kidney: 11.5 x 5.2 x 5.9 cm Pancreas: wnl Liver: wnl Gallbladder: Lumen clear, appeared slightly contracted, pt states she is NPO Evidence for sonographic Barreto's sign: No CBD: wnl Spleen: wnl Right Kidney: wnl Left Kidney: wnl Upper IVC: wnl Abd Aorta: wnl There is no ascites. Incidental bilateral pleural effusions The liver is homogenous. The intrahepatic portion of the IVC and proximal abdominal aorta are within normal limits. There is no evidence of cholelithiasis. Common bile duct is unremarkable. The visu alized portions of the pancreas are homogenous. The spleen is unremarkable. Kidneys are symmetric a nd free of hydronephrosis. No renal lesions are seen. IMPRESSION: Borderline increased gallbladder wall thickness possibly due to contraction, correlate to exclude cholecystitis. Bilateral pleural effusions.
[2016-10-13 10:10] LABS: Add Differential Manual Differential
[2016-10-13 10:15] LABS: Band Neutrophils % 3.5 %; Manual Review Performed; Myelocytes % 2.5 %; Nucleated Red Blood Cells 0 /100 WBC (0-0); RBC Morphology Normal; Total Cells Counted 200
--- NOTE | 2016-10-13 10:20 | PN ---
DATE OF SERVICE: 10/12/2016 This 36-year-old woman who was admitted with acute cellulitis and possible sepsis, is being closely monitored. The patient is complaining of leg edema. I have seen and evaluated the patient with the nurse practitioner. Please refer to the nurse practitioner notes and impression documented as scribe for further information. IV fluids were stopped and the patient was given single dose of Lasix. Ultrasound of abdomen. Chest x-ray. Further recommendations to follow.
[2016-10-13] MEDS: ACETAMINOPHEN TAB 325 MG TAB PO PRN ×2 (10:55→17:20)
[2016-10-13] MEDS: CHOLECALCIFEROL 1,000 UNIT TAB PO SCH (12:11)
[2016-10-13] MEDS: MULTIVITAMINS, THERA 1 EACH TAB PO SCH (12:11)
--- NOTE | 2016-10-13 20:13 | P.PN ---
Subjective Principal diagnosis: Fever 56-year-old female presents to the emergency center with concerns to greater than a day of symptoms. She is a known history of vein stripping to her right lower extremity due to varicose veins. This occurred several years ago. Over time she's had difficulties with some chronic changes to her skin to the right lower extremity.. She more recently suffered a scratched the pretibial surface of the right leg. Incessantly she developed significant swelling and pain and erythema to the leg. She was using some [id number] psoriatic medications without much improvement. She then had the onset of the high-grade fever of 103.46 with chills without jose rigors. Feeling very poorly. Urine became dark and odorous. She also felt poorly overall. This evening she is receiving a dose of vancomycin as developed a diffuse red reaction. And it is held. She feels slightly better this evening as far as her fever. She's had fluid resuscitation and is definitely helping her feeling better overall. Leg is still uncomfortable. It is related that her duplexes negative and she does not have a deep venous thrombosis of the right leg. She does not have a significant amount of pulmonary symptoms and chest x-rays were minimally abnormal. Patient relates she's not been feeling well for the last few days. She's been laying around and sleeping quite a bit. That is active issues usually has been. 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 Feeling considerably better today. Fever is definitely improved. 97.6 currently. No further high-grade fevers . Leg is feeling better. Does have an area on the distal medial thigh of some irritation and erythema still but overall improved. With compression she is quite surprised with a much improved the lower part of the leg .. Objective - Vital Signs Vital signs: Vital Signs Temp 98.3 F 10/13/16 15:00 Pulse 82 10/13/16 15:00 Resp 18 10/13/16 15:00 BP 130/61 10/13/16 15:00 Pulse Ox 96 10/13/16 15:00 Intake & Output 10/13/16 10/13/16 10/14/16 06:59 18:59 06:59 Intake Total 1040 Balance 1040 Intake: Oral 1040 Other: Voiding Method Toilet # Voids 2 2 - Exam Pleasant 56-year-old woman who is somewhat uncomfortable is just developed a bit of a rash. HEENT: Anicteric conjunctiva are pink and moist nasal mucosa grossly intact without significant lesions, there is no thrush. Oral cavity though is dry Neck: The neck is supple without significant lymphadenopathy or thyromegaly. Lungs: Good bilateral air entry without wheezing , crackles at the bases ,there is no significant bronchial sounds. There is no egophony or dullness. Heart: Regular rate and rhythm with an audible S1-S2, no S3 no S4. There is no significant murmur click or rub, PMI was nondisplaced. Abdomen: Positive bowel sounds soft and nontender without palpable masses or organomegaly. There was no guarding or rebound. Extremities: The upper extremities have excellent pulses they are symmetric, no significant petechiae or telangiectasia. No splinter hemorrhages were noted. Left lower extremity without abnormality is. Pulses are 2+ and symmetric. No lesions on the left leg. Right leg is improvement of the dense erythema of the right pretibial area. There is again dense erythema on the medial aspect of the thigh and into the right groin which is persistent today. Has resolution of the tenderness and lymphadenopathy of the right groin. No other abnormal lymph nodes are noted Neuro: Awake alert oriented to person place and time. There are no acute new gross focal sensory motor deficits. - Labs CBC & Chem 7: 10/13/16 08:26 10/13/16 08:26 Labs: Abnormal Lab Results - Last 24 Hours (Table) 10/13/16 10/13/16 Range/Units 08:26 08:26 WBC 11.2 H (3.8-10.6) k/uL RBC 3.66 L (3.80-5.40) m/uL Hgb 10.6 L (11.4-16.0) gm/dL Hct 33.8 L (34.0-46.0) % Neutrophils # (Manual) 8.0 H (1.3-7.7) k/uL Sodium 146 H (137-145) mmol/L Magnesium 1.5 L (1.6-2.3) mg/dL AST 109 H (14-36) U/L ALT 75 H (9-52) U/L Alkaline Phosphatase 315 H (38-126) U/L Total Protein 5.7 L (6.3-8.2) g/dL Albumin 2.9 L (3.5-5.0) g/dL Laboratory Results WBC 11.2 k/uL (3.8-10.6) H 10/13/16 08:26 RBC 3.66 m/uL (3.80-5.40) L 10/13/16 08:26 Hgb 10.6 gm/dL (11.4-16.0) L 10/13/16 08:26 Hct 33.8 % (34.0-46.0) L 10/13/16 08:26 MCV 92.2 fL (80.0-100.0) 10/13/16 08:26 MCH 28.8 pg (25.0-35.0) 10/13/16 08:26 MCHC 31.3 g/dL (31.0-37.0) 10/13/16 08:26 RDW 13.5 % (11.5-15.5) 10/13/16 08:26 Plt Count 324 k/uL (150-450) 10/13/16 08:26 Neutrophils % 82 % 10/11/16 09:44 Neutrophils % (Manual) 67.5 % 10/13/16 08:26 Band Neutrophils % 3.5 % 10/13/16 08:26 Lymphocytes % 6 % 10/11/16 09:44 Lymphocytes % (Manual) 11.5 % 10/13/16 08:26 Monocytes % 5 % 10/11/16 09:44 Monocytes % (Manual) 6.0 % 10/13/16 08:26 Eosinophils % 4 % 10/11/16 09:44 Eosinophils % (Manual) 2.5 % 10/13/16 08:26 Basophils % 0 % 10/11/16 09:44 Basophils % (Manual) 0.5 % 10/13/16 08:26 Metamyelocytes % 6.0 % 10/13/16 08:26 Myelocytes % 2.5 % 10/13/16 08:26 Neutrophils # 7.6 k/uL (1.3-7.7) 10/11/16 09:44 Neutrophils # (Manual) 8.0 k/uL (1.3-7.7) H 10/13/16 08:26 Lymphocytes # 0.6 k/uL (1.0-4.8) L 10/11/16 09:44 Lymphocytes # (Manual) 1.3 k/uL (1.0-4.8) 10/13/16 08:26 Monocytes # 0.4 k/uL (0-1.0) 10/11/16 09:44 Monocytes # (Manual) 0.7 k/uL (0-1.0) 10/13/16 08:26 Eosinophils # 0.4 k/uL (0-0.7) 10/11/16 09:44 Eosinophils # (Manual) 0.3 k/uL (0-0.7) 10/13/16 08:26 Basophils # 0.0 k/uL (0-0.2) 10/11/16 09:44 Basophils # (Manual) 0.1 k/uL (0-0.2) 10/13/16 08:26 Nucleated RBCs 0 /100 WBC (0-0) 10/13/16 08:26 Manual Slide Review Performed 10/13/16 08:26 Toxic Granulation Present 10/12/16 08:54 RBC Morphology Normal 10/13/16 08:26 Poikilocytosis (manual Present 10/12/16 08:54 Anisocytosis (manual) Present 10/12/16 08:54 PT 11.2 sec (9.0-12.0) 10/07/16 20:37 INR 1.1 (<1.1) 10/07/16 20:37 APTT 28.7 sec (22.0-30.0) 10/07/16 20:37 Sodium 146 mmol/L (137-145) H 10/13/16 08:26 Potassium 3.6 mmol/L (3.5-5.1) 10/13/16 08:26 Chloride 106 mmol/L (98-107) 10/13/16 08:26 Carbon Dioxide 25 mmol/L (22-30) 10/13/16 08:26 Anion Gap 15 mmol/L 10/13/16 08:26 BUN 13 mg/dL (7-17) 10/13/16 08:26 Creatinine 0.99 mg/dL (0.52-1.04) 10/13/16 08:26 Est GFR (MDRD) Af Amer >60 (>60 ml/min/1.73 sqM) 10/13/16 08:26 Est GFR (MDRD) Non-Af 58 (>60 ml/min/1.73 sqM) 10/13/16 08:26 Glucose 91 mg/dL (74-99) 10/13/16 08:26 Plasma Lactic Acid [place] 1.3 mmol/L (0.7-2.0) 10/08/16 16:05 Calcium 8.7 mg/dL (8.4-10.2) 10/13/16 08:26 Magnesium 1.5 mg/dL (1.6-2.3) L 10/13/16 08:26 Total Bilirubin 1.0 mg/dL (0.2-1.3) 10/13/16 08:26 AST 109 U/L (14-36) H 10/13/16 08:26 ALT 75 U/L (9-52) H 10/13/16 08:26 Alkaline Phosphatase 315 U/L (38-126) H 10/13/16 08:26 Total Protein 5.7 g/dL (6.3-8.2) L 10/13/16 08:26 Albumin 2.9 g/dL (3.5-5.0) L 10/13/16 08:26 Urine Color Dark Yellow 10/08/16 02:56 Urine Appearance Cloudy (Clear) H 10/08/16 02:56 Urine pH 6.0 (5.0-8.0) 10/08/16 02:56 Ur Specific [place] 1.024 (1.001-1.035) 10/08/16 02:56 Urine Protein 2+ (Negative) H 10/08/16 02:56 Urine Glucose (UA) Negative (Negative) 10/08/16 02:56 Urine Ketones Negative (Negative) 10/08/16 02:56 Urine Blood Moderate (Negative) H 10/08/16 02:56 Urine Nitrite Negative (Negative) 10/08/16 02:56 Urine Bilirubin 1+ (Negative) H 10/08/16 02:56 Urine Urobilinogen 6.0 mg/dL (<2.0) 10/08/16 02:56 Ur Leukocyte Esterase Small (Negative) H 10/08/16 02:56 Urine RBC 13 /hpf (0-5) H 10/08/16 02:56 Ur Squamous Epith Cells 2 /hpf (0-4) 10/08/16 02:56 Hyaline Casts 19 /lpf (0-2) H 10/08/16 02:56 Granular Casts 109 /lpf (0) 10/08/16 02:56 Urine Mucus Rare /hpf (None) H 10/08/16 02:56 Hepatitis A IgM Ab NEGATIVE 10/09/16 07:58 Hep Bs Antigen Negative 10/09/16 07:58 Hep B Core IgM Ab NEGATIVE 10/09/16 07:58 Hep C IgG Ab Negative (Negative) 10/09/16 07:58 Microbiology 10/07/16 20:37 Blood Blood Culture - Preliminary No Growth after 120 hours 10/08/16 02:56 Urine,Clean Catch Urine Culture - Final Assessment and Plan (1) Sepsis affecting skin Narrative/Plan: 56-year-old female presents to hospital with the sudden onset of fever chills generalized malaise and not feeling well for a few days. Then she developed significant pain discomfort and erythema to her right leg. She currently sought care in the emergency center room and has now been admitted with evidence of cellulitis and lymphangitis of the right lower extremity. Her risk factors are prior history of vein stripping to the leg. As he has chronic skin condition the right lower extremity which is present in the bases chronic venous stasis and some chronic ulceration. The skin will be treated with Silvadene. This far as antibiotic therapy she developed a reaction to the vancomycin therapy was quite acute and sudden and was viewed at this time. Vancomycin is discontinued and Benadryl was initiated. Patient likely has a streptococcal infection given the current scenario. Anc will been utilizing this will be the only therapy at this time. Patient does have some atelectasis from her recent inactivity and illness. The incentive spirometer is at the bedside. To be used 10 times per hour. Chest x- ray showing evidence of some atelectasis and fluid clinically doubt pneumonia. With the diuresis is definitely improved today much less short of breath Probiotic therapy with Lactinex is added Elevation the limb and wrap will help this process. She will do well to follow-up in the office for evaluation of her skin condition the going setting since I'm concerned this is a venous stasis condition. Is noted she is markedly improved. Continue course. Expect 24 hours further intravenous antibiotic therapy for further improvement. Oral cephalosporin at discharge will be utilized. Status: Acute (2) Fever Status: Acute (3) Cellulitis with lymphangitis Status: Acute (4) Atelectasis of both lungs Status: Acute
--- NOTE | 2016-10-13 22:04 | PN ---
DATE OF SERVICE: 10/13/2016 This 56-year-old woman who was admitted with cellulitis, also elevated LFTs, also I have seen and evaluated the patient with the nurse practitioner, please refer to the nurse practitioner notes and impression documented as a scribe for further information. The patient has some localized infection in the right upper thigh also. Closely following with Infectious Disease. Abdominal ultrasound was requested which showed borderline increased gallbladder wall thickness. Venous Doppler was negative. MTDD
[2016-10-13 23:16] VITALS: RESP 16
[2016-10-13] MEDS: POTASSIUM CHLORIDE ER 20 MEQ TAB.ER PO SCH (23:35)
--- NOTE | 2016-10-13 23:36 | P.PN ---
Subjective Date of service 10/13/2016 Progress note being dictated for Dr. Alegria. Interval history: Is a 56-year-old female admitted with sepsis, acute cellulitis of the right leg, lymphangitis and multiple other medical issues. Maintained on IV antibiotics as per ID. LFTs continue to slowly trend up , abdominal ultrasound performed reporting slightly thickened gallbladder wall, possibly cholecystitis.T BIli 1.0. currently afebrile with T-max of 100.5 , WBC increased to 11.2. potassium 3.6, magnesium 1.5. Diuresed well, with much improvement reported in edema. Review of systems: HEENT: Denies headache or focal deficits. Denies any dizziness or lightheadedness. Respiratory: Denies any increased shortness of breath. Cardiac: Denies any chest pain, palpitations. GI: Denies any nausea, vomiting, or diarrhea. Denies any abdominal tenderness, but states previously had intermittent localized right upper quadrant discomfort ,no radiation. : Denies any dysuria. Psychiatry: Denies any anxiety or depression. A Active Medications Acetaminophen (Tylenol Tab) 650 mg PO Q6HR PRN PRN Reason: Mild Pain or Fever > 100.5 Last Admin: 10/13/16 17:20 Dose: 650 mg Hydrocodone Bitart/Acetaminophen ([place] 5-325) 1 each PO Q6HR PRN PRN Reason: Pain Last Admin: 10/10/16 04:28 Dose: 1 each Albuterol Sulfate (Ventolin Nebulized) 2.5 mg INHALATION RT-QID [facility] Last Admin: 10/13/16 19:12 Dose: Not Given Alprazolam (Xanax) 0.25 mg PO TID PRN PRN Reason: Anxiety Aspirin (Aspirin) 81 mg PO DAILY [facility] Last Admin: 10/13/16 08:32 Dose: 81 mg Cholecalciferol (Vitamin D3) 1,000 unit PO DAILY@1200 [facility] Last Admin: 10/13/16 12:11 Dose: 1,000 unit Cyanocobalamin (Vitamin B-12) 1,000 mcg PO DAILY [facility] Last Admin: 10/13/16 08:32 Dose: 1,000 mcg Furosemide (Lasix) 60 mg IV Q12HR [facility] Last Admin: 10/13/16 21:14 Dose: 60 mg Heparin Sodium (Porcine) (Heparin) 5,000 unit SQ Q8HR [facility] Last Admin: 10/13/16 16:10 Dose: 5,000 unit Hydromorphone HCl (Dilaudid) 1 mg IV Q3HR PRN PRN Reason: Severe Pain Cefazolin Sodium 2 gm/ Sodium (Chloride) 100 mls @ 100 mls/hr IVPB Q8HR [facility] Last Admin: 10/13/16 16:10 Dose: 100 mls/hr Magnesium Sulfate/Dextrose 1 (gm/ IV Solution) 100 mls @ 100 mls/hr IVPB Q1H [facility] Stop: 10/14/16 01:14 Ibuprofen (Motrin) 400 mg PO Q6HR PRN PRN Reason: Mild Pain or Fever > 100.5 Last Admin: 10/09/16 01:21 Dose: 400 mg Lactobacillus Acidoph/Bulgaricus (Lactinex) 1 each PO QID [facility] Last Admin: 10/13/16 21:15 Dose: 1 each Multivitamins (Theragran) 1 each PO DAILY@1200 [facility] Last Admin: 10/13/16 12:11 Dose: 1 each Naloxone HCl (Narcan) 0.2 mg IV Q2M PRN PRN Reason: Opioid Reversal Ondansetron HCl (Zofran) 4 mg IVP Q8HR PRN PRN Reason: Nausea And Vomiting Pantoprazole Sodium (Protonix) 40 mg PO AC-BRKFST [facility] Last Admin: 10/13/16 08:32 Dose: 40 mg Potassium Chloride (K-Dur 20) 40 meq PO Q2HR [facility] Stop: 10/14/16 02:01 Silver Sulfadiazine (Silvadene Cream) 1 applic TOPICAL DAILY [facility] Last Admin: 10/13/16 08:33 Dose: 1 applic Sodium Bicarbonate () 10 ml PO 5XD [facility] Last Admin: 10/13/16 21:16 Dose: 10 ml Temazepam (Restoril) 15 mg PO HS PRN PRN Reason: Insomnia Objective - Vital Signs Vital signs: Vital Signs Temp 98.3 F 10/13/16 15:00 Pulse 82 10/13/16 15:00 Resp 18 10/13/16 15:00 BP 130/61 10/13/16 15:00 Pulse Ox 96 10/13/16 15:00 Intake & Output 10/12/16 10/13/16 10/13/16 18:59 06:59 18:59 Intake Total 1040 Balance 1040 Intake: Oral 1040 Other: Voiding Method Toilet # Voids 3 2 2 # Bowel Movements 1 - Exam PHYSICAL EXAM: VITAL SIGNS: [As above] GENERAL: [Sitting up in chair, no acute distress] HEENT: [Pupils equal conjunctiva normal.] NECK: [Supple, no JVD] RESPIRATORY EFFORT:[Normal] LUNGS: [Lungs clear, bilateral bases diminished, no crackles, rhonchi or wheezes] CARDIOVASCULAR[regular S1 and S2, no murmurs rubs or gallops] GI: [Abdomen soft, nontender, positive bowel sounds.] PSYCH: [Alert and oriented -3, mood and affect normal.] SKIN: mild left leg edema, right leg erythema,cellulitis/right thigh improving,] NEURO: [No focal deficits, moves all 4 extremities, strength and sensation intact] Microbiology 10/07/16 20:37 Blood Blood Culture - Final No Growth after 144 hours 10/08/16 02:56 Urine,Clean Catch Urine Culture - Final - Labs CBC & Chem 7: 10/13/16 08:26 10/13/16 08:26 Labs: Abnormal Lab Results - Last 24 Hours (Table) 10/13/16 10/13/16 Range/Units 08:26 08:26 WBC 11.2 H (3.8-10.6) k/uL RBC 3.66 L (3.80-5.40) m/uL Hgb 10.6 L (11.4-16.0) gm/dL Hct 33.8 L (34.0-46.0) % Neutrophils # (Manual) 8.0 H (1.3-7.7) k/uL Sodium 146 H (137-145) mmol/L Magnesium 1.5 L (1.6-2.3) mg/dL AST 109 H (14-36) U/L ALT 75 H (9-52) U/L Alkaline Phosphatase 315 H (38-126) U/L Total Protein 5.7 L (6.3-8.2) g/dL Albumin 2.9 L (3.5-5.0) g/dL Assessment and Plan Plan: 1. [Acute cellulitis of right leg with lymphangitis, early sepsis, 2. [Elevated LFTs, hepatitis panel negative, possibly choleycystitis, possible chronic liver disease. 3. [Mild acute renal failure secondary to prerenal factors and prerenal azotemia , and eventually improved with IV fluid]. 4. [Hypoalbuminemia]. 5. [Anemia, normocytic of chronic disease]. 6. [Obesity, BMI 35.1]. 7. [Bibasilar atelectasis, bilateral pleural effusions, mild pulmonary edema secondary to IV fluid hydration]. Doubt pneumonia. 8. Hypokalemia 9. varicose veins, history of veins stripping. 10. Thrombocytopenia, resolved 11. leucocytosis Plan: Continue on current medication regime, antibiotics, monitoring and symptomatic treatment. Continue diuresing on Lasix IVP. Potassium and magnesium supplements ordered. Close monitoring of electrolytes with repeat labs ordered for a.m. GI consult initiated in regards to elevated LFts, abnormal US, recommendations pending. Discharge planning in progress for tomorrow. The impression and plan of care has been dictated as directed. : I performed a H&P examination of this patient and discussed the same with the dictator. I agree with the dictator's note. Any additional findings/opinions/ etc. will be noted.
[2016-10-14] MEDS: MAGNESIUM SULFATE-D5W PMX 1 GM in DEXTROSE/WATER 1 100ML.BAG IVPB SCH ×2 (00:42→01:47)
[2016-10-14] MEDS: POTASSIUM CHLORIDE ER 20 MEQ TAB.ER PO SCH (01:48)
[2016-10-14] MEDS: SALT AND SODA MOUTHWASH 1,000 ML PO SCH ×2 (05:27→12:16)
[2016-10-14 07:50] VITALS: BP 125/69; PULSE 70; TEMP 97.6
[2016-10-14] MEDS: CYANOCOBALAMIN 500 MCG TAB PO SCH (07:57)
[2016-10-14] MEDS: PANTOPRAZOLE 40 MG TABLET PO SCH (07:57)
[2016-10-14] MEDS: ASPIRIN 81 MG CHEW PO SCH (07:58)
[2016-10-14] MEDS: LACTOBACILLUS ACIDOPH & BULGAR 1 EACH PACKET PO SCH (07:58)
[2016-10-14] MEDS: HEPARIN SODIUM,PORCINE 5,000 UNIT/ML 1 ML VIAL SQ SCH (07:58)
[2016-10-14] MEDS: ceFAZolin 2 GM in SODIUM CHLORIDE 0.9% 100 ML IVPB SCH (07:58)
[2016-10-14] MEDS: FUROSEMIDE 10 MG/ML 10 ML VIAL IV SCH (07:58)
[2016-10-14] MEDS: ALBUTEROL NEBULIZED 2.5 MG/3 ML INHALATION SCH (08:10)
[2016-10-14 08:19] LABS: ALT 68 U/L (9-52); AST 85 U/L (14-36); Alkaline Phosphatase 293 U/L (38-126); Anion Gap 10 mmol/L; Blood Urea Nitrogen 14 mg/dL (7-17); Calcium 8.2 mg/dL (8.4-10.2); Carbon Dioxide 32 mmol/L (22-30); Chloride 99 mmol/L (98-107); Glucose 98 mg/dL (74-99); Non-African American GFR(MDRD) >60 (>60 ml/min/1.73 sqM); Sodium 141 mmol/L (137-145); Total Bilirubin 0.7 mg/dL (0.2-1.3); Total Protein 5.7 g/dL (6.3-8.2)
--- NOTE | 2016-10-14 10:22 | P.CONS ---
History of Present Illness - Reason for Consult Consult date: 10/14/16 Elevated liver enzymes Requesting physician: Ruchi Alegria - History of Present Illness 56-year-old female patient Dr. Newton with a past medical history of varicose veins, psoriasis, and borderline hyperlipidemia. Consultation requested for elevated liver enzymes. Admitted on 10/07/2016 with sepsis lymphangitis secondary to right lower extremity swelling with fever erythema cellulitis. T-max 103.4. Over the last several weeks she's been experiencing pain in the right leg she thought was exercise related. She developed chills prior to admission along with a chronic psoriatic lesion to the right ankle. She was placed on intravenous vancomycin and developed "red man syndrome, drug reaction". Vancomycin was discontinued and she was placed on Kefzol. There are no prior medical records to review liver chemistries however on admission total bilirubin 1.3. AST 69. ALT 103. Alkaline phosphatase 135. Over the course of the last week total bilirubin has ranged between 0.7-1.7. AST 39-111. ALT 44-103. Alkaline phosphatase 135-315. Hepatitis panel negative. Ultrasound abdomen reported no cholelithiasis or gallbladder wall thickening or biliary ductal dilation. Reports mild intermittent right upper quadrant discomfort nothing severe. No new medications prior to admission including antibiotics. No excessive usage of aspirin or NSAIDs or acetaminophen products. No alcohol consumption or EtOH history. No history of known liver disorders or hepatitis. Liver enzymes are improving. She does take some herbal supplements over-the- counter as well as niacin for borderline hyperlipidemia. Serum Albumin low between 2.2-3.3. Hemoglobin 10-12 range. MCV 94. Platelet 106-324. INR 1.1. Review of Systems Constitutional: Denies fever, chills, sweats, weight gain, or loss. HEENT: Negative for migraines, blurred vision or loss, earaches, drainage, tinnitus, oral mucosal lesions, dysphagia, or odynophagia. CARDIAC: Order line hyperlipidemia. Negative for chest pain, arrhythmias, or palpitation. RESPIRATORY: Negative for shortness of breath, hemoptysis, cough, or sputum production. GI: See HPI for pertinent findings. : Negative for hematuria, urgency, frequency, polyuria, or dysuria. GYNc: Ovarian cysts. Denies possibility of . Negative vaginal discharge. MUSCULOSKELETAL: Varicose veins. Negative for muscle aches, swelling, arthritis , and arthralgias. NEUROLOGIC: Negative for stroke or TIA. ENDOCRINE: Negative for thyroid problems. SKIN: Negative for rash or itching. PSYCHIATRIC: Negative history for depression and anxiety All systems: negative (See HPI) Past Medical History Additional Past Medical History / Comment(s): varicose veins History of Any Multi-Drug Resistant Organisms: None Reported Past Surgical History: Tonsillectomy Additional Past Surgical History / Comment(s): ovarian cyst and breast cyst removed Past Psychological History: No Psychological Hx Reported Additional Psychological History / Comment(s): lives in the family home with her and adult daughter who is a certified nursing assistant instructor. Other adult children live in the [place] area. Lifelong nonsmoker and no severe alcohol use. 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 No international travel. No experience. No animal exposures Smoking Status: Never smoker Past Alcohol Use History: None Reported Past Drug Use History: None Reported Medications and Allergies Home Medications Medication Instructions Recorded Confirmed Type Aspirin EC [Ecotrin Low Dose] 81 mg PO DAILY 10/07/16 10/07/16 History Cholecalciferol [Vitamin D3] 1,000 unit PO DAILY 10/07/16 10/07/16 History Cyanocobalamin (Vitamin B-12) 1,000 mcg PO HS 10/07/16 10/07/16 History [Vitamin B-12] [place] 1 tab PO DAILY 10/07/16 10/07/16 History [place]-3 Fatty Acids/Fish Oil [Fish 1 cap PO DAILY 10/07/16 10/07/16 History Oil 1,000 mg Softgel] [place] Oil 1 tab PO HS 10/07/16 10/07/16 History Allergies Allergy/AdvReac Type Severity Reaction Status Date / Time Sulfa (Sulfonamide Allergy Rash/Hives Verified 10/08/16 00:19 Antibiotics) Physical Exam Vitals: Vital Signs Temp Pulse Resp BP BP Pulse Ox 10/14/16 07:00 97.6 F 70 16 125/69 93 L 10/13/16 23:00 99.3 F 72 16 128/65 94 L 10/13/16 15:00 98.3 F 82 18 130/61 96 Intake and Output 10/13/16 10/14/16 10/14/16 22:59 06:59 14:59 Other: # Voids 1 General appearance: The patient is alert, oriented, in no acute distress. HET: Head is normocephalic and atraumatic. Pupils are equal and reactive. Oropharynx is clear without lesions. Neck: Supple without lymphadenopathy. Trachea midline. Heart: S1 S2. Regular rate and rhythm. Lungs: No crackles or wheezes are heard. Abdomen: Soft, nontender, nondistended with bowel sounds. No peritoneal signs. No palpable organomegaly or masses. Extremities: Right lower extremity with Melo wrap. Inner right thigh with localized area of erythema scabbing crossed no active drainage. +1 edema to right lower extremity. Neurological: No focal deficits. Strength and sensation are grossly intact. Results CBC & Chem 7: 10/13/16 08:26 10/14/16 07:18 Labs: Abnormal Lab Results - Last 24 Hours (Table) 10/13/16 10/14/16 Range/Units 08:26 07:18 WBC 11.2 H (3.8-10.6) k/uL RBC 3.66 L (3.80-5.40) m/uL Hgb 10.6 L (11.4-16.0) gm/dL Hct 33.8 L (34.0-46.0) % Neutrophils # (Manual) 8.0 H (1.3-7.7) k/uL Carbon Dioxide 32 H (22-30) mmol/L Calcium 8.2 L (8.4-10.2) mg/dL AST 85 H (14-36) U/L ALT 68 H (9-52) U/L Alkaline Phosphatase 293 H (38-126) U/L Total Protein 5.7 L (6.3-8.2) g/dL Albumin 2.8 L (3.5-5.0) g/dL US - abdomen: report reviewed (Review by Dr. Barnes) Assessment and Plan (1) Elevated liver enzymes Narrative/Plan: Etiology of elevated liver enzymes could possibly be related to presenting sepsis and drug-induced liver injury however underlying chronic liver disease cannot be entirely excluded. Status: Acute (2) Cellulitis of right leg Status: Acute (3) Cellulitis with lymphangitis Status: Acute (4) Sepsis affecting skin Status: Acute Plan: 1. Liver enzymes are improving therefore no further imaging is recommended at this time. 2. Will obtain additional serology for workup of chronic liver disease. 3. Repeat liver function tests in one week and follow up in GI office in 1-2 weeks for reevaluation. 4. Avoid hepatotoxic medications this includes [id number] nonprescribed herbal supplements/vitamins. 5. Agreeable for discharge will defer to medicine for discharge planning. Thank you for this kind referral and the opportunity to participate in the care of your patient. This consultation was discussed with Dr. Barnes. The impression and plan of care have been directed as dictated.
[2016-10-14 11:25] LABS: Add Differential Manual Differential
[2016-10-14 11:29] LABS: Manual Review Performed; Nucleated Red Blood Cells 0 /100 WBC (0-0); Total Cells Counted 200; Toxic Granulation Present
[2016-10-14 12:03] LABS: CH 29.9; CHCM 32.9; HCT 33.2 % (34.0-46.0); HDW 2.36; HGB 10.8 gm/dL (11.4-16.0); Immature Gran Flag Moderate; MCH 29.7 pg (25.0-35.0); MCHC 32.5 g/dL (31.0-37.0); MCV 91.3 fL (80.0-100.0); Mean Platelet Volume 7.6; RBC 3.63 m/uL (3.80-5.40); RDW 13.7 % (11.5-15.5); WBC (Perox) 9.62
[2016-10-14 13:23] LABS: % Iron Saturation 27.7 % (20-50)
[2016-10-14 19:24] LABS: ANA w/Reflex to Titer NEGATIVE (NEGATIVE)
--- NOTE | 2016-10-14 20:01 | DS ---
DATE OF ADMISSION: 10/07/2016 DATE OF DISCHARGE: 10/14/2016 FINAL DIAGNOSES: 1. Acute cellulitis of the right leg with lymphangitis with early sepsis, present on admission. 2. Elevated LFTs, possibly hepatitis secondary to sepsis. 3. Possible chronic liver disease. 4. Mild acute renal failure secondary to prerenal factors, dehydration and prerenal azotemia, improved. 5. Hypoalbuminemia. 6. Anemia, normocytic with anemia of chronic disease. 7. Obesity, body mass index of 34.1. 8. Bibasilar atelectasis, bilateral pleural effusions, mild pulmonary mild pulmonary edema secondary to IV fluids. 9. Hypokalemia. 10. Varicose veins and history of vein stripping. 11. Thrombocytopenia. 12. Leukocytosis. DISCHARGE DISPOSITION: The patient will be discharged in stable condition with guarded prognosis. Discharge cleared by multiple consultants. Total time taken 35 minutes. HISTORY OF PRESENT ILLNESS: This 56-year-old woman was admitted with a significant cellulitis of the right leg which was treated with antibiotics. The patient also had multiple other complicated features during the hospitalization as detailed above. Overall, the patient made significant improvement and the LFTs are followed up. Hepatitis panel is negative. Recommend outpatient followup. AST was 85 and ALT was 68, alk phos was 23. Albumin was 2.8. On exam, vitals are stable. CARDIOVASCULAR: S1 and S2 muffled. RESPIRATORY: Breath sounds diminished in the bases. ABDOMEN: Soft, nontender. LEGS: Left leg cellulitis. DISCHARGE ADVICE AND MEDICATIONS. 1. Diet is cardiac. 2. Activity limited until followup. 3. Follow up with Dr. Newton in 2 to 3 days. 4. Follow up with Dr. Barnes is advised for followup of the liver functions. 5. Followup with Dr. Banda as recommended. 6. Medications: a. Ecotrin 81 mg p.o. daily. b. Keflex 500 mg q.8 x1 week. c. Vitamin D3 1000 daily. d. Vitamin B 12,000 mcg p.o. q.h.s. e. Ibuprofen 400 mg every 6 hours p.r.n. f. Multivitamin 1 p.o. daily. g. [place]-3 fatty acid 1 p.o. daily. h. Protonix 40 mg daily. i. topically and local dressing. Once again, the patient will be discharged in a stable condition with a guarded prognosis. LUAN
== END 2016-10-14 13:42 | disposition home or self-care (01) | DRG 872 ==
LOC: EC 18:41 → OBSVTOIN 22:10 → 4MS4W 22:10 → INTOOBSV 22:10 → 4MS4W 23:23
PROVIDERS: ADMIT Hospitalist; ATTEND Hospitalist
DX: A41.9 Sepsis, unspecified organism (principal); J90 Pleural effusion, not elsewhere classified; N17.9 Acute kidney failure, unspecified; J81.1 Chronic pulmonary edema; E44.0 Moderate protein-calorie malnutrition; E87.1 Hypo-osmolality and hyponatremia; B17.9 Acute viral hepatitis, unspecified; J98.11 Atelectasis; L03.115 Cellulitis of right lower limb; L03.116 Cellulitis of left lower limb; D69.6 Thrombocytopenia, unspecified; E86.0 Dehydration; D63.8 Anemia in other chronic diseases classified elsewhere; E66.9 Obesity, unspecified; E78.5 Hyperlipidemia, unspecified; E87.6 Hypokalemia; I87.8 Other specified disorders of veins; I89.1 Lymphangitis; Z68.35 Body mass index [BMI] 35.0-35.9, adult
CPT/HCPCS: 36415; 71010; 76700; 80048; 80053; 80074; 81001; 82103; 82390; 82728; 83516; 83540; 83550; 83605; 83735; 84165; 85025; 85610; 85730; 86038; 87040; 87086; 94640; 96361; 96365; 96366; 96375; 99285